=== PATIENT | male | born 1995 | race Caucasian/White ===

== ENCOUNTER 2023-11-06 16:57 | Inpatient (IN) | payer OTHER, SELFPAY ==
--- NOTE | 2023-11-06 18:03 | PC.ADMIT ---
Dejon Rubalcava is a 28-year-old male admitted from [facility] to on a CV for treatment of SI w/ plan to jump off bridge. Tox screen not performed. Pt denies ETOH use but reports daily cigarette use and occasional THC use. Pt has hx of autism, mood disorder, anxiety, depression, bipolar and schizophrenia. Pt presented to ED with increased feelings of depression after finding out his aunt is dying of cancer and his friend last year. Pt does not have any outside providers. Upon arrival to , pt was alert, oriented, pleasant and cooperative. Mood depressed with congruent affect. Pt denied sleep and appetite disturbances. Pt was cooperative with admission but appeared guarded at times and would answer assessment questions by saying not necessarily and would not elaborate. Pt currently denies SI/HI/AH/VH but will reach out to staff if thoughts occur. Pt placed on 15 minute safety checks.
--- NOTE | 2023-11-06 18:17 | P.CONHOSP_ITS ---
History of Present Illness Data of Consult Service Date: 11/06/23 Requesting physician: Sharron Estrada Primary Care Provider: MD MARIA LUISA Powers Reason for consult: medical H&P 28-year-old male with history of autism (patient denies), mood disorder admitted to adult Psychiatry from [facility] ED with consult placed hospitalist service for medical H&P. While at [facility] ED, labs were unremarkable. The patient reports some abrasions to the dorsum of the left foot from his sandals that is causing some mild discomfort but otherwise has no complaints. He denies any alcohol use, drug use but does endorse smoking 1/2 pack of cigarettes on a daily basis. There does not appear to be any other acute medical issues at this time. Review of Systems Review of Systems: General: No fevers, malaise, unintentional weight loss HEENT: No blurred vision, diplopia. No sore throat, nasal congestion, rhinorrhea, sinus pain, ear pain Cardiovascular: No chest pain, palpitations, or leg edema Respiratory: No shortness of breath, wheezing, cough GI: No abdominal pain, nausea, vomiting, diarrhea, constipation, melena, hematochezia : No dysuria, hematuria, increased urinary frequency, decreased urinary output MSK: No myalgia, back pain Neuro: No headaches, weakness, paresthesias Skin: No rashes. +abrasions L foot PMFSH Medical History (Updated 11/06/23 @ 18:22 by SANTIAGO Gunderson) Autism spectrum disorder Social History Advance Directives: No Advance Directives Information Provided: No Meds Allergies Allergy/AdvReac Type Severity Reaction Status Date / Time Unable to Assess Allergy Verified 11/06/23 17:13 Active Medications: Current Medications Acetaminophen (Acetaminophen 325 Mg Tablet) 650 mg PO Q6H PRN PRN Reason: Headache/Pain Mild Scale (1-3) Al Hydroxide/Mg Hydroxide (Magnesium Hydrox/Alum Hydrox 30 Ml Oral.Susp) 30 ml PO Q6H PRN PRN Reason: Heartburn/Nausea Hydroxyzine HCl (Hydroxyzine Hcl 25 Mg Tablet) 25 mg PO Q6H PRN PRN Reason: Anxiety Magnesium Hydroxide (Milk Of Magnesia 30 Ml Oral.Susp) 30 ml PO DAILY PRN PRN Reason: Constipation Nicotine (Nicotine 21 Mg Patch.Td24) 21 mg TRANSDERMA DAILY PRN PRN Reason: nicotine cravings Nicotine Polacrilex (Nicotine Polacrilex 2 Mg Gum) 4 mg BUCCAL Q2H PRN PRN Reason: Nicotine Cravings Trazodone HCl (Trazodone Hcl 50 Mg Tablet) 50 mg PO BEDTIME MRX1 PRN PRN Reason: Insomnia Physical Exam Vital Signs and Narrative: Constitutional - Awake and Alert, No apparent distress Eyes - PERRLA, EOMI Cardiovascular - S1S2, RRR, No edema Respiratory - Normal lung expansion, Normal respiratory effort, No respiratory d istress, CTA bilaterally Gastrointestinal - NT / ND; +BS; No rebound or guarding - No CVA tenderness Extremities - no calf tenderness bilaterally, no swelling Skin - Warm/Dry. Tro superficial abrasions to the dorsum of the L foot with minimal surrounding erythema, no warmth or drainage Neurological - Alert & oriented x3, CN II-XII in tact, 5/5 strength BUE and BLE Psychological - Appropriate affect Assessment and Plan (1) Routine medical exam: Status: Acute Plan 28-year-old male with history of autism (patient denies), mood disorder admitted to adult Psychiatry from [facility] ED with consult placed hospitalist service for medical H&P. #Mood disorder -plan per psychiatry # Abrasions L foot -no evidence of infection -can use bactroban and cover with bandage. Advised to wear socks or appropriate footwear while on the unit Thank you for allowing me to participate in this consult. Signing off at this time. Please do not hesitate to call for further questions or for any acute medical issues
[2023-11-06 18:41] VITALS: BP 114/60; PULSE 73; RESP 16; TEMP 37.1; O2SAT 98; BMI 20.8
--- NOTE | 2023-11-06 19:20 | PC.NURSE ---
Pt's mother called asking for information. Pt did not sign release of information and stated his mother is a trigger for him and he does not want to receive any calls from her.
[2023-11-06 20:00] VITALS: BP 124/73; PULSE 75; RESP 16; TEMP 36.6; O2SAT 98
[2023-11-06] MEDS: Flu Vacc TS2024-25(6mos up)/PF 0.5 ML SYRINGE IM (20:04)
[2023-11-06] MEDS: Mupirocin 2 % Oint 22 GM TUBE 1 APPL TOPICAL (22:35)
[2023-11-06] MEDS: busPIRone HCl 10 MG TABLET PO (22:40)
[2023-11-07 07:25] VITALS: BP 115/57; PULSE 62; RESP 14; TEMP 36.5; O2SAT 95
[2023-11-07 07:50] VITALS: BP 115/57; PULSE 62; RESP 14; TEMP 36.5; O2SAT 95
[2023-11-07] MEDS: busPIRone HCl 10 MG TABLET PO ×2 (08:19→22:56)
[2023-11-07] MEDS: Escitalopram Oxalate 10 MG TABLET PO (08:19)
[2023-11-07] MEDS: Mupirocin 2 % Oint 22 GM TUBE 1 APPL TOPICAL ×2 (08:20→22:55)
[2023-11-07] MEDS: Nicotine Polacrilex 2 MG GUM 4 MG BUCCAL ×4 (08:27→22:19)
[2023-11-07] MEDS: Nicotine 14 MG PATCH.TD24 TRANSDERMA (08:27)
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
[2023-11-07 20:00] VITALS: BP 124/68; PULSE 84; RESP 16; TEMP 36.6; O2SAT 97
[2023-11-07] MEDS: hydrOXYzine HCL 25 MG TABLET PO (22:56)
[2023-11-07] MEDS: traZODone HCL 100 MG TABLET PO (23:40)
[2023-11-08 07:00] VITALS: BMI 20.7
[2023-11-08 08:00] VITALS: RESP 17
[2023-11-08] MEDS: Escitalopram Oxalate 10 MG TABLET PO (09:04)
[2023-11-08] MEDS: busPIRone HCl 10 MG TABLET PO ×2 (09:04→22:25)
[2023-11-08] MEDS: Mupirocin 2 % Oint 22 GM TUBE 1 APPL TOPICAL ×2 (09:05→22:24)
[2023-11-08] MEDS: Nicotine 14 MG PATCH.TD24 TRANSDERMA (09:08)
[2023-11-08 09:33] LABS: Cholesterol 201 mg/dL (<200); HDL Cholesterol 74 mg/dL (>40); LDL Cholesterol Calculated 118 mg/dL (<100); Magnesium 2.2 mg/dL (1.6-2.6); Triglycerides 47 mg/dL (<150)
[2023-11-08 09:49] LABS: Free T4 (Free Thyroxine) 0.87 ng/dL (0.71-1.85); Thyroid Stimulating Hormone 1.87 uIU/mL (0.32-4.0)
[2023-11-08 10:01] LABS: Folate 9.6 ng/mL (> or = 4.0); Vitamin B12 644 pg/mL (200-900)
[2023-11-08 10:11] LABS: Estimated Average Glucose 103 mg/dL; Hemoglobin A1c % 5.2 % (<6.0)
[2023-11-08] MEDS: Nicotine Polacrilex 2 MG GUM 4 MG BUCCAL ×3 (14:15→21:04)
--- NOTE | 2023-11-08 14:55 | P.PNPSI_ITS ---
Subjective Subjective Date of Service: 11/08/23 Reason For Visit: Unspecified Bipolar Disorder Interim History: sleeping in bed. woke up but declined interview. per staff, agitated yesterday. taking meds. no SI/HI/AVH. some self-dialogue. appears to be RIS. slept 8 hours. Mental Status Exam Mental Status Exam Narrative: dressed in hospital gown. disheveled. not cooperative. no PMA/PMR. speech nml rate; decr amount, loudness, tone; incr latency. thoughts linear and logical. affect constricted, normo-intense, non-labile. mood not assessed. no SI/SIBI/HI/AVH expressed. Diagnostics Vital Signs (24Hr): Vital Signs - 24 hr 11/07/23 20:00 11/08/23 08:00 Temperature 97.8 F Pulse Rate 84 Respiratory Rate 16 17 Blood Pressure 124/68 Pulse Oximetry 97 Oxygen Delivery Method Room Air BMI result Body Mass Index 20.8 Labs Labs: Laboratory Results - last 48 hr 11/08/23 08:55 Estimat Average Glucose 103 Hemoglobin A1c % 5.2 Magnesium 2.2 Triglycerides 47 Cholesterol 201 H LDL Cholesterol, Calc 118 H HDL Cholesterol 74 Vitamin B12 644 Folate 9.6 TSH 1.87 Free T4 0.87 Medications Medications Current Medications Acetaminophen (Acetaminophen 325 Mg Tablet) 650 mg PO Q6H PRN PRN Reason: Headache/Pain Mild Scale (1-3) Al Hydroxide/Mg Hydroxide (Magnesium Hydrox/Alum Hydrox 30 Ml Oral.Susp) 30 ml PO Q6H PRN PRN Reason: Heartburn/Nausea Buspirone HCl (Buspirone Hcl 10 Mg Tablet) 10 mg PO BID [facility] Last Admin: 11/08/23 09:04 Dose: 10 mg Escitalopram Oxalate (Escitalopram Oxalate 10 Mg Tablet) 10 mg PO DAILY [facility] Last Admin: 11/08/23 09:04 Dose: 10 mg Hydroxyzine HCl (Hydroxyzine Hcl 25 Mg Tablet) 25 mg PO Q6H PRN PRN Reason: Anxiety Last Admin: 11/07/23 22:56 Dose: 25 mg Magnesium Hydroxide (Milk Of Magnesia 30 Ml Oral.Susp) 30 ml PO DAILY PRN PRN Reason: Constipation Mupirocin (Mupirocin 2 % Oint 22 Gm Tube) 1 appl TOPICAL BID [facility]; Protocol Last Admin: 11/08/23 09:05 Dose: 1 appl Nicotine (Nicotine 14 Mg Patch.Td24) 14 mg TRANSDERMA DAILY PRN PRN Reason: nicotine cravings Last Admin: 11/08/23 09:08 Dose: 14 mg Nicotine Polacrilex (Nicotine Polacrilex 2 Mg Gum) 4 mg BUCCAL Q2H PRN PRN Reason: Nicotine Cravings Last Admin: 11/08/23 14:15 Dose: 4 mg Trazodone HCl (Trazodone Hcl 100 Mg Tablet) 100 mg PO BEDTIME PRN PRN Reason: insomnia Last Admin: 11/07/23 23:40 Dose: 100 mg Allergies Allergies Allergy/AdvReac Type Severity Reaction Status Date / Time No Known Allergies Allergy Verified 11/06/23 18:40 Assessment & Plan Assessment & Plan (1) Depressive disorder: Status: Acute Code(s): F32.A - Depression, unspecified (2) Autism spectrum disorder: Status: Acute Code(s): F84.0 - Autistic disorder Plan 11/06: continue lexapro and buspar. refer for outpt Tx. pt requesting a letter for court indicating he has had a psychiatric evaluation. 11/07: declined interview. per staff, appearing to RIS, some self-dialoguing. continue current mgmt. Reason for continued inpatient stay Substantial Risk for: harm to self Time Spent With Patient Time: Total time managing care of this patient today ____ minutes.
[2023-11-08 20:00] VITALS: BP 144/86; PULSE 80; RESP 16; TEMP 36.6; O2SAT 98
[2023-11-09] MEDS: Escitalopram Oxalate 10 MG TABLET PO (09:23)
[2023-11-09] MEDS: busPIRone HCl 10 MG TABLET PO ×2 (09:23→22:46)
[2023-11-09] MEDS: Nicotine 14 MG PATCH.TD24 TRANSDERMA (09:25)
[2023-11-09] MEDS: Nicotine Polacrilex 2 MG GUM 4 MG BUCCAL ×5 (09:47→22:47)
[2023-11-09] MEDS: Mupirocin 2 % Oint 22 GM TUBE 1 APPL TOPICAL ×2 (09:48→22:46)
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
[2023-11-09 20:00] VITALS: RESP 16
[2023-11-10] MEDS: Nicotine Polacrilex 2 MG GUM 4 MG BUCCAL ×4 (01:31→21:58)
[2023-11-10 08:00] VITALS: BP 109/59; PULSE 72; RESP 16; TEMP 36.8; O2SAT 98
[2023-11-10] MEDS: Escitalopram Oxalate 10 MG TABLET PO (08:55)
[2023-11-10] MEDS: Mupirocin 2 % Oint 22 GM TUBE 1 APPL TOPICAL ×2 (08:55→23:15)
[2023-11-10] MEDS: busPIRone HCl 10 MG TABLET PO ×2 (08:55→23:15)
--- NOTE | 2023-11-10 09:16 | P.PNPSI_ITS ---
Subjective Subjective Date of Service: 11/10/23 Reason For Visit: Unspecified Bipolar Disorder Subjective Notes: Conditional Voluntary Interim History: Patient was seen and discussed in rounds today. Records and plans were reviewed. Some depression persisting but no anxiety. Pacing. Social and somewhat guarded. He is med compliant. No complaints or side effects. Doing okay with the decrease of trazodone. No changes were made today Review of Systems Review of Systems Yes all other systems are reviewed and are negative Mental Status Exam Mental Status Exam Narrative: In today's visit he is alert, pleasant and interactive. No signs of psychosis. Moderate dysphoria present. No cognitive deficits. No delusions. Cognitively is grossly intact with slow thought processes. No SI. Judgment is intact Diagnostics Vital Signs (24Hr): Vital Signs - 24 hr 11/09/23 20:00 Respiratory Rate 16 BMI result Body Mass Index 20.7 Labs Labs: Laboratory Results - last 48 hr 11/08/23 08:55 Estimat Average Glucose 103 Hemoglobin A1c % 5.2 Magnesium 2.2 Triglycerides 47 Cholesterol 201 H LDL Cholesterol, Calc 118 H HDL Cholesterol 74 Vitamin B12 644 Folate 9.6 TSH 1.87 Free T4 0.87 Medications Medications Current Medications Acetaminophen (Acetaminophen 325 Mg Tablet) 650 mg PO Q6H PRN PRN Reason: Headache/Pain Mild Scale (1-3) Al Hydroxide/Mg Hydroxide (Magnesium Hydrox/Alum Hydrox 30 Ml Oral.Susp) 30 ml PO Q6H PRN PRN Reason: Heartburn/Nausea Buspirone HCl (Buspirone Hcl 10 Mg Tablet) 10 mg PO BID [facility] Last Admin: 11/10/23 08:55 Dose: 10 mg Escitalopram Oxalate (Escitalopram Oxalate 10 Mg Tablet) 10 mg PO DAILY [facility] Last Admin: 11/10/23 08:55 Dose: 10 mg Hydroxyzine HCl (Hydroxyzine Hcl 25 Mg Tablet) 25 mg PO Q6H PRN PRN Reason: Anxiety Last Admin: 11/07/23 22:56 Dose: 25 mg Magnesium Hydroxide (Milk Of Magnesia 30 Ml Oral.Susp) 30 ml PO DAILY PRN PRN Reason: Constipation Mupirocin (Mupirocin 2 % Oint 22 Gm Tube) 1 appl TOPICAL BID [facility]; Protocol Last Admin: 11/10/23 08:55 Dose: 1 appl Nicotine (Nicotine 14 Mg Patch.Td24) 14 mg TRANSDERMA DAILY PRN PRN Reason: nicotine cravings Last Admin: 11/09/23 09:25 Dose: 14 mg Nicotine Polacrilex (Nicotine Polacrilex 2 Mg Gum) 4 mg BUCCAL Q2H PRN PRN Reason: Nicotine Cravings Last Admin: 11/10/23 01:31 Dose: 4 mg Trazodone HCl (Trazodone Hcl 25 Mg Halftab) 75 mg PO BEDTIME PRN PRN Reason: insomnia Allergies Allergies Allergy/AdvReac Type Severity Reaction Status Date / Time No Known Allergies Allergy Verified 11/06/23 18:40 Assessment & Plan Assessment & Plan (1) Depressive disorder: Status: Acute Code(s): F32.A - Depression, unspecified (2) Autism spectrum disorder: Status: Acute Code(s): F84.0 - Autistic disorder Plan 11/06: continue lexapro and buspar. refer for outpt Tx. pt requesting a letter for court indicating he has had a psychiatric evaluation. 11/07: declined interview. per staff, appearing to RIS, some self-dialoguing. continue current mgmt. 11/08: does not appear psychotic, denies psychotic Sx. feeling improved. decrease HS traz to 75, otherwise continue current mgmt. 11/09: Continue current regimen and plans Reason for continued inpatient stay Substantial Risk for: med/psych decompensation Time Spent With Patient Time: Total time managing care of this patient today ____ minutes.
[2023-11-10 20:00] VITALS: BP 123/83; PULSE 81; RESP 16; TEMP 36.9; O2SAT 97
[2023-11-11] MEDS: Nicotine Polacrilex 2 MG GUM 4 MG BUCCAL ×8 (00:02→23:50)
[2023-11-11 07:58] VITALS: BP 118/59; PULSE 71; RESP 16; TEMP 36.3; O2SAT 97
[2023-11-11] MEDS: Escitalopram Oxalate 10 MG TABLET PO (08:55)
[2023-11-11] MEDS: busPIRone HCl 10 MG TABLET PO ×2 (08:56→21:47)
[2023-11-11] MEDS: Mupirocin 2 % Oint 22 GM TUBE 1 APPL TOPICAL (09:25)
--- NOTE | 2023-11-11 09:47 | P.PNPSI_ITS ---
Subjective Subjective Date of Service: 11/11/23 Reason For Visit: Unspecified Bipolar Disorder Subjective Notes: Conditional Voluntary Interim History: Patient was seen and discussed in rounds today. Records and plans were reviewed. He continues to be isolative, guarded and withdrawn. Moderate depression and anxiety present. Slept 5 hours. Eating adequately. No complaints or side effects. No behavioral issues. No changes were made today Review of Systems Review of Systems Yes all other systems are reviewed and are negative Mental Status Exam Mental Status Exam Narrative: In today's visit he is alert, pleasant and interactive. No signs of psychosis. Moderate dysphoria present. No cognitive deficits. No delusions. Cognitively is grossly intact with slow thought processes. No SI. Judgment is intact Diagnostics Vital Signs (24Hr): Vital Signs - 24 hr 11/10/23 20:00 11/11/23 07:58 Temperature 98.4 F 97.3 F Pulse Rate 81 71 Respiratory Rate 16 16 Blood Pressure 123/83 118/59 L Pulse Oximetry 97 97 Oxygen Delivery Method Room Air Room Air BMI result Body Mass Index 20.7 Medications Medications Current Medications Acetaminophen (Acetaminophen 325 Mg Tablet) 650 mg PO Q6H PRN PRN Reason: Headache/Pain Mild Scale (1-3) Al Hydroxide/Mg Hydroxide (Magnesium Hydrox/Alum Hydrox 30 Ml Oral.Susp) 30 ml PO Q6H PRN PRN Reason: Heartburn/Nausea Buspirone HCl (Buspirone Hcl 10 Mg Tablet) 10 mg PO BID [facility] Last Admin: 11/11/23 08:56 Dose: 10 mg Escitalopram Oxalate (Escitalopram Oxalate 10 Mg Tablet) 10 mg PO DAILY [facility] Last Admin: 11/11/23 08:55 Dose: 10 mg Hydroxyzine HCl (Hydroxyzine Hcl 25 Mg Tablet) 25 mg PO Q6H PRN PRN Reason: Anxiety Last Admin: 11/07/23 22:56 Dose: 25 mg Magnesium Hydroxide (Milk Of Magnesia 30 Ml Oral.Susp) 30 ml PO DAILY PRN PRN Reason: Constipation Mupirocin (Mupirocin 2 % Oint 22 Gm Tube) 1 appl TOPICAL BID [facility]; Protocol Last Admin: 11/11/23 09:25 Dose: 1 appl Nicotine (Nicotine 14 Mg Patch.Td24) 14 mg TRANSDERMA DAILY PRN PRN Reason: nicotine cravings Last Admin: 11/09/23 09:25 Dose: 14 mg Nicotine Polacrilex (Nicotine Polacrilex 2 Mg Gum) 4 mg BUCCAL Q2H PRN PRN Reason: Nicotine Cravings Last Admin: 11/11/23 02:21 Dose: 4 mg Trazodone HCl (Trazodone Hcl 25 Mg Halftab) 75 mg PO BEDTIME PRN PRN Reason: insomnia Allergies Allergies Allergy/AdvReac Type Severity Reaction Status Date / Time No Known Allergies Allergy Verified 11/06/23 18:40 Assessment & Plan Assessment & Plan (1) Depressive disorder: Status: Acute Code(s): F32.A - Depression, unspecified (2) Autism spectrum disorder: Status: Acute Code(s): F84.0 - Autistic disorder Plan 11/06: continue lexapro and buspar. refer for outpt Tx. pt requesting a letter for court indicating he has had a psychiatric evaluation. 11/07: declined interview. per staff, appearing to RIS, some self-dialoguing. continue current mgmt. 11/08: does not appear psychotic, denies psychotic Sx. feeling improved. decrease HS traz to 75, otherwise continue current mgmt. 11/09: Continue current regimen and plans 11/10: Continue current regimen and plans Reason for continued inpatient stay Substantial Risk for: med/psych decompensation Time Spent With Patient Time: Total time managing care of this patient today ____ minutes.
[2023-11-11 19:52] VITALS: BP 125/70; PULSE 79; RESP 14; TEMP 37; O2SAT 98
[2023-11-12] MEDS: Nicotine Polacrilex 2 MG GUM 4 MG BUCCAL ×2 (01:58→11:36)
[2023-11-12] MEDS: busPIRone HCl 10 MG TABLET PO ×2 (08:19→22:28)
[2023-11-12] MEDS: Escitalopram Oxalate 10 MG TABLET PO (08:19)
[2023-11-12 08:21] VITALS: BP 111/63; PULSE 77; RESP 16; TEMP 36.6; O2SAT 98
[2023-11-12] MEDS: Nicotine Polacrilex 2 MG GUM BUCCAL ×5 (13:31→22:28)
--- NOTE | 2023-11-12 13:55 | HO.PSYCHPN ---
Subjective Subjective Date of Service: 11/12/23 Reason For Visit: Unspecified Bipolar Disorder Interim History: calm, cooperative. no complaints. requests to reduce marina patch mg as well as marina gum to 2 mg each dose. planning to leave on . per staff, visible, pacing. using headphones. up until 0330. slept after. Mental Status Exam Mental Status Exam Narrative: dressed in hospital gown. disheveled. cooperative. no PMA/PMR. speech nml rate, amount, loudness, tone, latency. thoughts linear and logical. affect full range, normo-intense, non-labile. mood pretty good. no SI/SIBI/HI/AVH expressed. Diagnostics Vital Signs (24Hr): Vital Signs - 24 hr 11/11/23 19:52 11/12/23 08:21 Temperature 98.6 F 97.8 F Pulse Rate 79 77 Respiratory Rate 14 16 Blood Pressure 125/70 111/63 Pulse Oximetry 98 98 Oxygen Delivery Method Room Air Room Air BMI result Body Mass Index 20.7 Medications Medications Current Medications Acetaminophen (Acetaminophen 325 Mg Tablet) 650 mg PO Q6H PRN PRN Reason: Headache/Pain Mild Scale (1-3) Al Hydroxide/Mg Hydroxide (Magnesium Hydrox/Alum Hydrox 30 Ml Oral.Susp) 30 ml PO Q6H PRN PRN Reason: Heartburn/Nausea Buspirone HCl (Buspirone Hcl 10 Mg Tablet) 10 mg PO BID [facility] Last Admin: 11/12/23 08:19 Dose: 10 mg Escitalopram Oxalate (Escitalopram Oxalate 10 Mg Tablet) 10 mg PO DAILY [facility] Last Admin: 11/12/23 08:19 Dose: 10 mg Hydroxyzine HCl (Hydroxyzine Hcl 25 Mg Tablet) 25 mg PO Q6H PRN PRN Reason: Anxiety Last Admin: 11/07/23 22:56 Dose: 25 mg Magnesium Hydroxide (Milk Of Magnesia 30 Ml Oral.Susp) 30 ml PO DAILY PRN PRN Reason: Constipation Mupirocin (Mupirocin 2 % Oint 22 Gm Tube) 1 appl TOPICAL BID [facility]; Protocol Last Admin: 11/12/23 08:20 Dose: Not Given Nicotine (Nicotine 7 Mg Patch.Td24) 7 mg TRANSDERMA DAILY PRN PRN Reason: nicotine cravings Nicotine Polacrilex (Nicotine Polacrilex 2 Mg Gum) 2 mg BUCCAL Q2H PRN PRN Reason: Nicotine Cravings Last Admin: 11/12/23 13:31 Dose: 2 mg Trazodone HCl (Trazodone Hcl 25 Mg Halftab) 75 mg PO BEDTIME PRN PRN Reason: insomnia Allergies Allergies Allergy/AdvReac Type Severity Reaction Status Date / Time No Known Allergies Allergy Verified 11/06/23 18:40 Assessment & Plan Assessment & Plan (1) Depressive disorder: Status: Acute Code(s): F32.A - Depression, unspecified (2) Autism spectrum disorder: Status: Acute Code(s): F84.0 - Autistic disorder Plan 11/06: continue lexapro and buspar. refer for outpt Tx. pt requesting a letter for court indicating he has had a psychiatric evaluation. 11/07: declined interview. per staff, appearing to RIS, some self-dialoguing. continue current mgmt. 11/08: does not appear psychotic, denies psychotic Sx. feeling improved. decrease HS traz to 75, otherwise continue current mgmt. 11/09: Continue current regimen and plans 11/10: Continue current regimen and plans 11/11: stable, well. planning for weds discharge. decr marina patch to 7 mg/day. decr marina gum to 2 mg/dose. Reason for continued inpatient stay Substantial Risk for: rapid decompensation Time Spent With Patient Time: Total time managing care of this patient today __25__ minutes.
[2023-11-12] MEDS: Nicotine 7 MG PATCH.TD24 TRANSDERMA (14:53)
[2023-11-12 19:51] VITALS: BP 126/74; PULSE 85; RESP 18; TEMP 36.9; O2SAT 98
[2023-11-13] MEDS: Nicotine Polacrilex 2 MG GUM BUCCAL ×8 (00:30→23:17)
[2023-11-13] MEDS: Escitalopram Oxalate 10 MG TABLET PO (09:16)
[2023-11-13] MEDS: busPIRone HCl 10 MG TABLET PO ×2 (09:16→22:10)
[2023-11-13] MEDS: Nicotine 7 MG PATCH.TD24 TRANSDERMA (10:03)
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
[2023-11-13 22:15] VITALS: BP 117/66; PULSE 83; RESP 14; TEMP 36.6; O2SAT 97
[2023-11-14] MEDS: Nicotine Polacrilex 2 MG GUM BUCCAL ×2 (01:20→09:58)
[2023-11-14] MEDS: busPIRone HCl 10 MG TABLET PO (09:26)
[2023-11-14] MEDS: Escitalopram Oxalate 10 MG TABLET PO (09:26)
[2023-11-14] MEDS: Nicotine 7 MG PATCH.TD24 TRANSDERMA (09:26)
== END 2023-11-14 10:27 | disposition home or self-care (01) | DRG 754 ==
PROVIDERS: Clinical Nurse Specialist Psychiatric/Mental Health, Adult; Admitting Provider Psychiatry & Neurology Psychiatry; PCP Internal Medicine; Visit Provider Psychiatry & Neurology Psychiatry
DX: F32.A Depression, unspecified (principal); F17.210 Nicotine dependence, cigarettes, uncomplicated; F84.0 Autistic disorder; Z71.6 Tobacco abuse counseling; Z23 Encounter for immunization
CPT/HCPCS: 36415; 80061; 82607; 82746; 83036; 83735; 84439; 84443; 90656

== ENCOUNTER → 2023-11-06 16:57 | Outpatient (BNV) | payer OTHER, SELFPAY | PROVIDERS: Admitting Provider Psychiatry & Neurology Psychiatry; PCP Internal Medicine; Visit Provider Physician Assistant | DX: Z02.2 Encounter for examination for admission to residential institution (principal) | CPT/HCPCS: 99429 ==

== ENCOUNTER → 2023-11-06 16:57 | Outpatient (BNV) | payer OTHER, SELFPAY | PROVIDERS: Admitting Provider Psychiatry & Neurology Psychiatry; PCP Internal Medicine; Visit Provider Psychiatry & Neurology Psychiatry | DX: F32.2 Major depressive disorder, single episode, severe without psychotic features (principal); F84.0 Autistic disorder | CPT/HCPCS: 99231; 99232; 99233 ==

== ENCOUNTER 2024-01-22 03:45 | Emergency (ER) | payer OTHER, SELFPAY ==
[2024-01-22 03:57] VITALS: BP 122/78; PULSE 106; RESP 16; TEMP 36.8; O2SAT 97; BMI 20.4
[2024-01-22 04:18] LABS: IDNOW Serial# 6674DD1D; Strep A Nucleic Acid Positive (Negative)
[2024-01-22 04:51] LABS: Influenza A PCR NEGATIVE (Negative); Influenza B PCR NEGATIVE (Negative); Resp Syncy Virus RNA Qual PCR NEGATIVE (Negative); SARS COV2 PCR INHOUSE NEGATIVE (Negative)
--- NOTE | 2024-01-22 07:19 | ED_ITS ---
HPI - General Adult General Chief complaint: Upper Respiratory Symptoms Stated complaint: runny nose, sore throat Time Seen by Provider: 01/22/24 07:09 Source: patient, RN notes reviewed and old records reviewed Mode of arrival: ambulatory Limitations: no limitations History of Present Illness ED Provider: ÁNGELA MARSH PA-C HPI narrative: 28 year old male with pmhx significant for autism presents to the ED today for evaluation of covid symptoms . He reports runny nose, sore throat, dry cough, fever (TMAX 101), and chills x2 days. He has not been taking any aint-mrd-sranskl medications for his symptoms at home. States the last time he felt like this he was diagnosed with covid. Denies known sick contacts. Denies recent travel. Denies headache, dizziness, vision changes, chest pain, shortness of breath, rashes. Related Data Previous Rx's ?Medication ?Instructions ?Recorded buspirone 10 mg tablet 10 mg PO BID 30 days #60 tabs 11/13/23 escitalopram oxalate 10 mg tablet 10 mg PO DAILY 30 days #30 tabs 11/13/23 (Lexapro) nicotine (polacrilex) 2 mg gum 2 mg buccal Q2H PRN Nicotine 11/13/23 Cravings 15 days #120 ea nicotine 7 mg/24 hr daily 7 mg transdermal DAILY PRN 11/13/23 transdermal patch nicotine cravings 28 days #28 ea trazodone 50 mg tablet 75 mg (1.5 x 50 mg) PO BEDTIME PRN 11/13/23 insomnia 30 days #45 tabs benzocaine 15 mg-menthol 2.6 mg 1 reno mucous membrane Q2-4H PRN 01/22/24 lozenges (Cepacol Sore Throat sore throat #16 ea (benzocaine-menthol)) penicillin V potassium 500 mg 500 mg PO BID 10 days #20 tabs 01/22/24 tablet Allergies Allergy/AdvReac Type Severity Reaction Status Date / Time No Known Allergies Allergy Verified 01/22/24 03:57 Review of Systems Review of Systems: Constitutional: No fever, chills, fatigue, night sweats, weight changes ENT/Mouth: No ear pain, hearing loss, nasal congestion, sinus pain, rhinorrhea, +sore throat, +odynophagia, No dysphagia Eyes: No eye pain, swelling, redness, vision changes, discharge Cardio: No chest pain, palpitations, MEEHAN, orthopnea, peripheral edema Pulm: No SOB, sputum, wheezing, dyspnea, hemoptysis, +cough GI: No nausea, vomiting, hematemesis, abdominal pain, diarrhea, constipation, hematochezia, melena : No irregular bleeding, dysuria, frequency, urgency, hesitancy, hematuria, flank pain MSK: No back pain, neck pain, joint pain, myalgias Skin: No lesions, rashes Neuro: No weakness, numbness, paresthesias, LOC, dizziness, headache All other systems reviewed and are negative. [facility] Past Medical History Attestation statement: The following information was validated with the patient. Source: old records reviewed and nursing notes reviewed Medical History Routine medical exam Autism spectrum disorder Social History Social History Household Members: Friend(s) Housing: Apartment Patient Tobacco Use Status: Current everyday Tobacco user Tobacco use type: Cigarette Cigarette Packs Per Day: 0.5 Cigarettes Per Day: 10.0 e-Cigarette/Vaping Use: Currently Using Second Hand Smoke Exposure: No Substance Use Type: Marijuana Advance Directives: No Advance Directives Information Provided: No Do you have a plan to hurt others: No Plan service: No Sexual orientation: Unable to collect Physical Exam ED Vital Signs: Vital Signs - 24 hr 01/22/24 03:57 Temperature 98.2 F Pulse Rate 106 H Respiratory Rate 16 Blood Pressure 122/78 Pulse Oximetry 97 Oxygen Delivery Method Room Air BMI result Body Mass Index 20.4 Tachycardic to 106. Vitals otherwise WNL. Afebrile. General: Well appearing, in no acute distress. Skin: Warm, dry, intact. No rashes or lesions. Head: Normocephalic, atraumatic. EENT: Hearing is intact b/l. Conjunctiva clear. PERRLA. EOM intact. Moist mucous membranes.?posterior oropharynx is erythematous. There is no tonsillar edema or tonsillar exudates. No peritonsillar masses. Uvula midline. Controlling secretions and speaking in complete sentences. Cardiac: Chest wall symmetric. RRR Lungs: Normal respiratory effort without accessory muscle use. CTA bilaterally. No rales, rhonchi, or wheezes.? Abdomen: Soft, non-tender, non-distended. No rebound tenderness or guarding. Positive BS x4. no splenomegaly. Ext: Upper and lower extremities atraumatic, without tenderness, deformity, swelling or erythema. Full ROM throughout Neuro: AOx3. Normal speech. Ambulating with steady gait. Psych: Appropriate mood and affect. Responds appropriately to questions. Course Course Course Narrative: 07 -- patient tested positive for strep throat. negative for covid, flu, rsv. he is afebrile in ED. will send penicillin and cepacol lozenges to pharmacy. Patient has remained stable throughout ED visit today. Discussed worrisome signs and symptoms and when to return to the ED. All questions answered at this time. Patient is agreeable with disposition and stable for discharge. Medical Decision Making Medical Decision Making [facility] Narrative: 28 year old male with pmhx significant for autism presents to the ED today with upper respiratory symptoms. He is tachycardic to 106, vitals otherwise wnl. Afebrile. He is nontoxic appearing and in NAD. On exam posterior oropharynx is erythematous. There is no tonsillar edema or tonsillar exudates. No peritonsillar masses. Uvula midline. Controlling secretions and speaking in complete sentences. Lungs clear, no respiratory distress. Skin w/d/i, no ra shes. Differential diagnosis includes strep throat, viral syndrome. 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 Plan for viral serology, strep swab, re-evaluation. Differential Diagnosis Differential Diagnoses: The differential diagnosis associated with the presentation includes as above. Admission/Observation Not indicated Lab Data [facility] Lab Attestation statement: I reviewed the patient's lab results. as above Labs: Lab Results 01/22/24 Range/Units 04:05 Influenza Type A (PCR) NEGATIVE (Negative) Influenza Type B (PCR) NEGATIVE (Negative) RSV RNA Qual (PCR) NEGATIVE (Negative) SARS-CoV-2 RNA (RT-PCR) NEGATIVE (Negative) S. pyogenes GrpA ANKUSH Positive A (Negative) External Record Review External record reviewed: Inpatient record Prescription Management I considered prescription management with: Pain Medication (Cepacol throat lozenges) and Antibiotic (Penicillin) Critical Care Time Critical Care Time Critical Care Time: No Discharge Plan Discharge Clinical Impression: Acute streptococcal pharyngitis Patient Disposition: Home, Self-Care Instructions: Strep Throat (ED) Additional Instructions: You tested positive for strep throat. You tested negative for flu, covid, and rsv. Penicillin is an antibiotic that has been sent to your pharmacy. Take this twice daily for the next 10 days to treat strep throat. Do not stop taking these antibiotics early or miss any doses as this may cause infection to return or worsen. Cepacol throat lozenges have been sent to your pharmacy to help with throat pain. You may also purchase msso-xhp-lephkrp chloraseptic spray to numb your throat. Take Tylenol and ibuprofen as needed for body aches or fevers. Make sure to change your toothbrush as this contains bacteria. Strep throat is contagious. If anyone else in your household is exhibiting symptoms, please advise them to come to the ED, urgent care, or to see their primary care provider. Follow up with your primary care provider this week. Return to the Emergency Department if you experience worsening or uncontrolled pain, tongue swelling, difficulty swallowing, change in your voice, difficulty breathing, fevers 100.4?F or greater, recurrent vomiting, development of a rash, or any other concerning symptoms. In the case of emergency, call 911.? Prescriptions: New penicillin V potassium 500 mg tablet 500 mg PO BID 10 Days Qty: 20 0RF Cepacol Sore Throat (liliane-men) 15-2.6 mg lozenge 1 reno mucous membrane Q2-4H PRN (Reason: sore throat) Qty: 16 0RF No Action nicotine (polacrilex) 2 mg Gum 2 mg buccal Q2H PRN (Reason: Nicotine Cravings) 15 Days Qty: 120 1RF nicotine 7 mg/24 hr Patch 24 Hour 7 mg transdermal DAILY PRN (Reason: nicotine cravings) 28 Days Qty: 28 0RF trazodone 50 mg tablet 75 mg PO BEDTIME PRN (Reason: insomnia) 30 Days Qty: 45 0RF buspirone 10 mg Tablet 10 mg PO BID 30 Days Qty: 60 0RF escitalopram oxalate [Lexapro] 10 mg Tablet 10 mg PO DAILY 30 Days Qty: 30 0RF Referrals: Andrew Sheikh MD [Primary Care Provider] - Stand Alone Forms: Work/School Release Print Language: Wallisian
[2024-01-22 08:14] VITALS: BP 142/89; PULSE 112; RESP 18; TEMP 37; O2SAT 95
[2024-01-22 08:15] VITALS: BP 142/89; PULSE 112; RESP 18; TEMP 37; O2SAT 95
== END 2024-01-22 08:15 | disposition home or self-care (01) ==
PROVIDERS: Emergency Provider Emergency Medicine; PCP Internal Medicine
DX: J02.0 Streptococcal pharyngitis (principal); B95.0 Streptococcus, group A, as the cause of diseases classified elsewhere; R09.89 Other specified symptoms and signs involving the circulatory and respiratory systems; R05.9 Cough, unspecified; R50.9 Fever, unspecified; F17.210 Nicotine dependence, cigarettes, uncomplicated; F12.90 Cannabis use, unspecified, uncomplicated; Z03.818 Encounter for observation for suspected exposure to other biological agents ruled out; Z79.899 Other long term (current) drug therapy
CPT/HCPCS: 0241U; 87651; 99282; 99283

== ENCOUNTER 2024-03-05 02:37 | Inpatient (IN) | payer OTHER, SELFPAY ==
[2024-03-05 02:52] VITALS: BP 109/72; PULSE 80; RESP 18; TEMP 36.6; O2SAT 99
[2024-03-05 02:54] VITALS: BP 109/72; PULSE 80; RESP 18; TEMP 36.6; O2SAT 99; BMI 19.5
--- NOTE | 2024-03-05 02:54 | PC.NURSE ---
PT self presented to the ED c/c SI with plan to hang self. Has been having thoughts for the past 7 days Family member and friend pass away recently. HX of anxiety and depression. med compliant but feels like meds are not working pt changed over and belongings secured by security, belongings list completed, VSS, labs drawn and sent down to lab. PT oriented to unit resting quietly at this time. awaiting to be seen by provider. Plan of care ongoing
[2024-03-05 03:22] LABS: Basophils Absolute Auto 0.1 X10*3/uL (0.0-0.2); Basophils Percent Auto 0.6 % (0-2); Eosinophils Absolute Auto 0.2 X10*3/uL (0.0-0.4); Eosinophils Percent Auto 1.8 % (0-4); Hematocrit 38.5 % (42.0-52.0); Hemoglobin 13.2 g/dl (14.0-18.0); Imm Gran Abs Auto 0.01 X10*3/uL (0.00-0.03); Imm Gran Pct Auto 0.1 % (0.0-0.4); Lymphocytes Absolute Auto 2.6 X10*3/uL (1.2-4.9); Lymphocytes Percent Auto 28.1 % (20-40); MANUAL DIFF FLAG NO; Mean Corpuscular HGB Conc 34.3 g/dl (31.0-36.0); Mean Corpuscular Hemoglobin 30.8 pg (27.0-33.0); Mean Corpuscular Volume 89.7 fL (80.0-98.0); Mean Platelet Volume 9.2 fL (9.4-12.4); Monocytes Absolute Auto 0.6 X10*3/uL (0.1-1.2); Monocytes Percent Auto 6.2 % (2-11); Neutrophils Absolute Auto 5.8 x10*3/uL (2.0-8.3); Neutrophils Percent Auto 63.2 % (45-73); Platelet Count 210 X10*3/uL (160-400); Red Blood Count 4.29 X10*6/uL (4.60-5.80); Red Cell Distribution Width 13.4 % (11.0-16.0); White Blood Count 9.1 X10*3/uL (4.8-10.8)
--- NOTE | 2024-03-05 03:24 | ED_ITS ---
HPI - Psych General Chief Complaint: Psychiatric Symptoms Stated Complaint: crisis Time Seen by Provider: 03/05/24 03:23 Source: patient Mode of arrival: ambulatory Limitations: no limitations History of Present Illness ED Provider: Dr. Darren Michaels HPI Narrative: 29-year-old male with a history of depression anxiety, autism who presents emergency department for evaluation of suicidal ideation with a plan to hang himself. He states that recently his aunt and a good friend . He states that this triggered suicidal thoughts with a plan to hang himself. He has had these thoughts for proximally 1 week. States that he had similar thoughts over the past year and was hospitalized at [facility]. Patient states he takes Lexapro and buspirone but he does not think that these medications are helping him at this time. The patient occasionally drinks alcohol and he occasionally smokes marijuana but denies other drug use. Related Data Home Medications ?Medication ?Instructions ?Recorded ?Confirmed escitalopram oxalate 10 mg tablet 20 mg PO DAILY 03/05/24 03/05/24 (Lexapro) Previous Rx's ?Medication ?Instructions ?Recorded buspirone 10 mg tablet 10 mg PO BID 30 days #60 tabs 11/13/23 nicotine (polacrilex) 2 mg gum 2 mg buccal Q2H PRN Nicotine 11/13/23 Cravings 15 days #120 ea nicotine 7 mg/24 hr daily 7 mg transdermal DAILY PRN 11/13/23 transdermal patch nicotine cravings 28 days #28 ea trazodone 50 mg tablet 75 mg (1.5 x 50 mg) PO BEDTIME PRN 11/13/23 insomnia 30 days #45 tabs benzocaine 15 mg-menthol 2.6 mg 1 reno mucous membrane Q2-4H PRN 01/22/24 lozenges (Cepacol Sore Throat sore throat #16 ea (benzocaine-menthol)) penicillin V potassium 500 mg 500 mg PO BID 10 days #20 tabs 01/22/24 tablet Allergies Allergy/AdvReac Type Severity Reaction Status Date / Time No Known Allergies Allergy Verified 03/05/24 02:56 Review of Systems 2 Review of Systems: Yes all other systems are reviewed and are negative PMFSH Past Medical History [facility] Narrative: Social history: He does smoke cigarettes. He states he occasionally drinks alcohol. He does smoke marijuana but denies other drug use. Medical History Routine medical exam Autism spectrum disorder Social History Social History Household Members: Friend(s) Housing: Apartment Alcohol intake: current Alcohol intake frequency: holidays/special occasions only Patient Tobacco Use Status: Current everyday Tobacco user Tobacco use type: Cigarette Cigarette Packs Per Day: 0.5 Cigarettes Per Day: 10.0 Smoked in Last 30 Days: Yes e-Cigarette/Vaping Use: Currently Using Second Hand Smoke Exposure: No Use of substances other than those prescribed or required for medical reasons: Yes Substance Use Type: Marijuana Substance Use Frequency: Occasionally Advance Directives: No Do you have a plan to hurt others: No Plan service: No Sexual orientation: Unable to collect Physical Exam 2 Vital Signs: Vital Signs: Last Vital Signs Temp 97.8 F 03/05/24 02:54 Pulse 80 03/05/24 02:54 Resp 18 03/05/24 02:54 BP 109/72 03/05/24 02:54 Pulse Ox 99 03/05/24 02:54 O2 Del Method Room Air 03/05/24 02:54 BMI result Body Mass Index 19.5 Vital signs were normal Exam: General: Awake, alert in no distress Head: Normocephalic, atraumatic EENT: PERRL, Lids normal, sclera normal, conjunctiva normal, nose normal , ears normal, throat without erythema or exudates Neck: Supple, no adenopathy Lung: breath sounds symmetric, no wheezing, rales or rhonchi Chest: symmetric movement, nontender Heart: regular rate and rhythm, normal S1, S2 no murmurs or rubs Abdomen: soft, non-tender, nondistended, normal bowel sounds Back: no vertebral tenderness, no CVAT Extremities: no deformities, moves all extremities symmetrically Neuro: Awake, alert, oriented, normal speech, cranial nerves intact, moves all extremities symmetrically Psych: Pleasant, cooperative Medical Decision Making Medical Decision Making MDM Narrative: 29-year-old male with a history of depression anxiety, autism who presents emergency department for evaluation of suicidal ideation with a plan to hang himself with symptoms being present for 1 week. Of symptoms for triggered by 2 recent (his aunt and a close friend). He has been compliant with his medications but he does not think that they are working. Patient had similar suicidal ideation with plan to hang himself within the last year and was hospitalized at [facility]. Vital signs were normal. Physical examination was unremarkable. Differential diagnosis: ?Includes but is not limited to depression, anxiety, suicidal ideation, drug use disorder, intoxication, electrolyte abnormalities, anemia Course: 07:29 Start physician observation My interpretation patient's laboratory evaluation is as follows: Normocytic anemia with an H&H of 13.2 and 38.5. CMP revealed elevated chloride of 110, elevated BUN of 29 with a normal creatinine of 1.01. Ethanol was below detectable limits. Urine tox screen pending collection. Patient was medically cleared for care team evaluation.Patient will remain in the emergency department Behavioral Health Unit until disposition can be determined or until patient's symptoms improve over time. At the end of my shift, the patient's care was turned over to my colleague, Dr. Keyon Galeana. Admission/Observation Consideration of admission/observation: Escalation of care including admission/observation considered (Yes) Lab Data MDM Lab Attestation statement: I reviewed the patient's lab results. 03/05/24 03:15 03/05/24 03:15 Labs: Lab Results 03/05/24 Range/Units 03:15 WBC 9.1 (4.8-10.8) X10*3/uL RBC 4.29 L (4.60-5.80) X10*6/uL Hgb 13.2 L (14.0-18.0) g/dl Hct 38.5 L (42.0-52.0) % MCV 89.7 (80.0-98.0) fL MCH 30.8 (27.0-33.0) pg MCHC 34.3 (31.0-36.0) g/dl RDW 13.4 (11.0-16.0) % Plt Count 210 (160-400) X10*3/uL MPV 9.2 L (9.4-12.4) fL Immature Gran % (Auto) 0.1 (0.0-0.4) % Neut % (Auto) 63.2 (45-73) % Lymph % (Auto) 28.1 (20-40) % [place] % (Auto) 6.2 (2-11) % Eos % (Auto) 1.8 (0-4) % Baso % (Auto) 0.6 (0-2) % Lymph # (Auto) 2.6 (1.2-4.9) X10*3/uL [place] # (Auto) 0.6 (0.1-1.2) X10*3/uL Eos # (Auto) 0.2 (0.0-0.4) X10*3/uL Baso # (Auto) 0.1 (0.0-0.2) X10*3/uL Abs Immat Gran (auto) 0.01 (0.00-0.03) X10*3/uL Absolute Neuts (auto) 5.8 (2.0-8.3) x10*3/uL Absolute Nucleated RBC 0.000 (0.0-0.012) X10*3/uL Nucleated RBC % (auto) 0.0 (0.0-0.2) /100WBC Sodium 143 (135-145) mmol/L Potassium 4.1 (3.3-5.1) mmol/L Chloride 110 H (96-108) mmol/L Carbon Dioxide 25 (22-29) mmol/L Anion Gap 12 (12-20) BUN 21 H (9-16) mg/dL Creatinine 1.01 (0.5-1.4) mg/dL Estim Creat Clear Calc 76.8 Estimated GFR > 60 Random Glucose 94 (60-115) mg/dL Calcium 9.4 (8.4-10.2) mg/dL Total Bilirubin 0.2 (0.0-1.0) mg/dL AST 27 (5-37) U/L ALT 21 (0-40) U/L Alkaline Phosphatase 55 (39-117) U/L Total Protein 6.6 (6.5-8.0) g/dL Albumin 4.2 (3.5-5.0) g/dL Ethyl Alcohol < 10 mg/dL Chronic Conditions Patient?s care impacted by: Other (Depression, anxiety) Discharge Plan Discharge Clinical Impression: History of suicidal ideation Patient Disposition: Still a Patient Prescriptions: No Action penicillin V potassium 500 mg tablet 500 mg PO BID 10 Days Qty: 20 0RF Cepacol Sore Throat (liliane-men) 15-2.6 mg lozenge 1 reno mucous membrane Q2-4H PRN (Reason: sore throat) Qty: 16 0RF escitalopram oxalate [Lexapro] 10 mg tablet 20 mg PO DAILY nicotine (polacrilex) 2 mg Gum 2 mg buccal Q2H PRN (Reason: Nicotine Cravings) 15 Days Qty: 120 1RF nicotine 7 mg/24 hr Patch 24 Hour 7 mg transdermal DAILY PRN (Reason: nicotine cravings) 28 Days Qty: 28 0RF trazodone 50 mg tablet 75 mg PO BEDTIME PRN (Reason: insomnia) 30 Days Qty: 45 0RF buspirone 10 mg Tablet 10 mg PO BID 30 Days Qty: 60 0RF Interventions: [place]-Suicide Risk Severity Scale Last Done: 03/05/24 02:58 Print Language: Khmer
[2024-03-05 03:57] LABS: Alanine Aminotransferase 21 U/L (0-40); Albumin Level 4.2 g/dL (3.5-5.0); Alkaline Phosphatase 55 U/L (39-117); Anion Gap 12 (12-20); Aspartate Amino Transferase 27 U/L (5-37); Bilirubin Total 0.2 mg/dL (0.0-1.0); Blood Urea Nitrogen 21 mg/dL (9-16); Calcium 9.4 mg/dL (8.4-10.2); Carbon Dioxide 25 mmol/L (22-29); Chloride 110 mmol/L (96-108); Creatinine Clr Calc Pharmacy 76.8; Estimated Glomerular Filt Rate > 60; Ethanol < 10 mg/dL; Glucose Random 94 mg/dL (60-115); Potassium 4.1 mmol/L (3.3-5.1); Sodium 143 mmol/L (135-145); Total Protein 6.6 g/dL (6.5-8.0)
--- NOTE | 2024-03-05 08:57 | PC.NURSE ---
Care team at bedside
--- NOTE | 2024-03-05 09:53 | MHC.CARE ---
Pt will be an Adult inpatient psychiatric bedsearch
[2024-03-05 14:09] LABS: Appearance Urine Turbid; Color Urine Yellow; Glucose Urine UA Negative (Negative); Leukocyte Esterase Urine Negative (Negative); Nitrite Urine Negative (Negative); PH 6.5 (5.0-9.0); Specific Gravity - Urine >= 1.030 (1.005-1.025); Urine Blood Negative (Negative); Urine Ketones Negative (Negative); Urine Protein Negative (Neg-Trace)
[2024-03-05 14:17] LABS: Amphetamine Screen Urine Not Detected (Not Detect); Barbiturates, Urine Not Detected (Not Detect); Benzodiazepines Screen Urine Not Detected (Not Detect); Buprenorphine Scr Not Detected (Not Detect); Cannabinoid Screen Urine POSITIVE (Not Detect); Cocaine Screen Urine Not Detected (Not Detect); Fentanyl, urine Not Detected (Not Detect); Methadone Screen, Urine Not Detected (Not Detect); Opiate Screen Urine Not Detected (Not Detect); Oxycodone Screen Urine Not Detected (Not Detect); Phencyclidine Screen Urine Not Detected (Not Detect)
[2024-03-05 16:45] VITALS: BP 112/64; PULSE 75; RESP 18; TEMP 36.8; O2SAT 97
[2024-03-05 20:00] VITALS: BP 117/71; PULSE 77; RESP 16; TEMP 37.3; O2SAT 98
--- NOTE | 2024-03-05 20:15 | PHA.MEDREC ---
Addendum entered by [place], [facility] 03/05/24 20:30: med rec reviewed Original Note: Pharmacy Consult ? Medication Reconciliation Pharmacy reviewed med rec done by nursing. No claims were found for patient and I called patients [facility] in [place] to find out if they have filled Buspirone 10mg, Escitalopram 20mg or 10mg tabs and the Nicotine patches. They confirmed the last time the patient got the Buspirone 10mg tabs was in October for 30 days and the patient has not tried filling it since. They confirmed they also filled Escitalopram 10mg tabs in October for 30 days but states in the beginning of November the patients Dr discontinues that dose, and in January the patient had Escitalopram 20mg tabs filled 01/21 for 14 days and states on 02/[address] stopped that regimen. They confirmed the patient had Nicotine patches filled 11/13 for 28 days and also the patient got Nicotine gum filled on November 13 and states the patient has not filled those since. I spoke with the patients nurse and she states for the busprione He said still taking lexapro, 10 mg was dc and dose was increased. He said he fills buspirone in [place] and has been taking it . I kept those both on the med rec since patient confirmed that he was still taking them today.
[2024-03-05] MEDS: busPIRone HCl 10 MG TABLET PO (20:21)
--- NOTE | 2024-03-05 22:54 | PC.NURSE ---
Pt placed on 5 min checks ULB for safety due to past suicide attempts and SI w/plan to to hang self yesterday. CARE team assessment indicated pt had purchased means such as rope. Due to this pt placed on 5 min check although pt denies current SI/HI.
[2024-03-05 23:13] VITALS: BMI 22.4
[2024-03-05 23:14] VITALS: BMI 22.4
--- NOTE | 2024-03-05 23:16 | PC.NURSE ---
Pt arrived on M3 from [facility] at 19:45 on a CV for the treatment of SI w/plan to jump off bridge or hang self. Per CARE team assessment pt had purchased rope and was determined to follow through with his attempt. Precipitants of this admission include his 'favorite' aunt recently passing as well as a good friend ending his life in January 2024. Pt has 2 prior unsuccesful suicide attempts via hanging and cutting. Pt here due SI, increasing depression and feeling as if current meds are not helpful. Skin check completed with no significant findings. Pt placed on 5 min check for safety. Pt psych + structured group appropriate. Pt affect is flat and withdrawn. Pt is difficult to engage, but went to bed and fell asleep despite being told we would be doing his admission. adherent with night meds
--- NOTE | 2024-03-05 23:21 | PC.ADMIT ---
Pt arrived to [facility] [place] [facility] at 19:45 on a CV for the treatment of SI w/plan to jump off bridge or hang self. Per CARE team assessment pt had purchased rope and was determined to follow through with his attempt. Precipitants of this admission include his 'favorite' aunt recently passing as well as a good friend ending his life in January 2024. Pt has 2 prior unsuccesful suicide attempts via hanging and cutting. Pt here due SI, increasing depression and feeling as if current meds are not helpful. Pt completed safety tool and indicated that being around med is a trigger. Pt has a hx of self injurious behaviors but reported he feels safe now. Pt still placed on 5 min checks for safety and due to his hx of self-harm. Skin check completed with no significant findings. Pt psych + structured group appropriate. Pt affect is flat and withdrawn. Pt difficult to engage, went to bed and fell asleep despite being told we would be doing his admission. Pt adherent with night meds, wants to be left to sleep.
[2024-03-06 07:45] VITALS: BP 106/51; PULSE 56; RESP 12; TEMP 36.7; O2SAT 96
[2024-03-06] MEDS: Escitalopram Oxalate 20 MG TABLET PO (08:54)
[2024-03-06] MEDS: busPIRone HCl 10 MG TABLET PO ×2 (08:54→20:44)
[2024-03-06] MEDS: Nicotine 21 MG PATCH.TD24 TRANSDERMA (10:16)
[2024-03-06] MEDS: Nicotine Polacrilex 2 MG GUM BUCCAL (11:07)
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
[2024-03-06 20:00] VITALS: BP 117/66; PULSE 72; RESP 16; TEMP 37.4; O2SAT 96
[2024-03-06] MEDS: Nicotine Polacrilex 2 MG GUM 4 MG BUCCAL (20:50)
[2024-03-07] MEDS: Nicotine Polacrilex 2 MG GUM 4 MG BUCCAL ×7 (00:31→23:05)
[2024-03-07] MEDS: buPROPion HCl XL 150 MG TAB.ER.24H PO (09:08)
[2024-03-07] MEDS: Escitalopram Oxalate 10 MG TABLET PO (09:08)
[2024-03-07] MEDS: busPIRone HCl 10 MG TABLET PO ×2 (09:08→20:11)
--- NOTE | 2024-03-07 09:49 | PC.NURSE ---
Pt declined flu vaccine
--- NOTE | 2024-03-07 14:23 | HO.PSYCHPN ---
Subjective Subjective Date of Service: 03/07/24 Reason For Visit: SI Interim History: calm, cooperative, pleasant. upset about roommate's masturbating openly in the room. informed room changes underway. otherwise no issues. agreeable to increase wellbutrin to 300 mg daily as of sunday. per staff, 3-day up . depressed and anxious. isolative. took scheduled meds. Mental Status Exam Mental Status Exam Narrative: dressed in own clothes, adequately groomed. cooperative. no PMA/PMR. speech nml rate, amount, loudness, tone, latency. thoughts linear and logical. affect constricted, normo-intense, non-labile. mood fair. no SI/SIBI/HI/AVH expressed. Diagnostics Vital Signs (24Hr): Vital Signs - 24 hr 03/06/24 20:00 Temperature 99.4 F Pulse Rate 72 Respiratory Rate 16 Blood Pressure 117/66 Pulse Oximetry 96 Oxygen Delivery Method Room Air BMI result Body Mass Index 22.4 Labs 03/05/24 03:15 03/05/24 03:15 Medications Medications Current Medications Acetaminophen (Acetaminophen 325 Mg Tablet) 650 mg PO Q6H PRN PRN Reason: Headache/Pain Mild Scale (1-3) Al Hydroxide/Mg Hydroxide (Magnesium Hydrox/Alum Hydrox 30 Ml Oral.Susp) 30 ml PO Q6H PRN PRN Reason: Heartburn/Nausea Bupropion HCl (Bupropion Hcl Xl 150 Mg Tab.Er.24h) 150 mg PO DAILY [facility] Last Admin: 03/07/24 09:08 Dose: 150 mg Buspirone HCl (Buspirone Hcl 10 Mg Tablet) 10 mg PO BID [facility] Last Admin: 03/07/24 09:08 Dose: 10 mg Escitalopram Oxalate (Escitalopram Oxalate 10 Mg Tablet) 10 mg PO DAILY [facility] Last Admin: 03/07/24 09:08 Dose: 10 mg Hydroxyzine HCl (Hydroxyzine Hcl 25 Mg Tablet) 25 mg PO Q6H PRN PRN Reason: Anxiety Magnesium Hydroxide (Milk Of Magnesia 30 Ml Oral.Susp) 30 ml PO DAILY PRN PRN Reason: Constipation Nicotine (Nicotine 21 Mg Patch.Td24) 21 mg TRANSDERMA DAILY PRN PRN Reason: nicotine cravings Last Admin: 03/06/24 10:16 Dose: 21 mg Nicotine Polacrilex (Nicotine Polacrilex 2 Mg Gum) 4 mg BUCCAL Q1H PRN PRN Reason: Nicotine Cravings Last Admin: 03/07/24 14:08 Dose: 4 mg Olanzapine (Olanzapine 5 Mg Tablet) 5 mg PO Q4H PRN PRN Reason: agitation Trazodone HCl (Trazodone Hcl 50 Mg Tablet) 50 mg PO BEDTIME MRX1 PRN PRN Reason: Insomnia Allergies Allergies Allergy/AdvReac Type Severity Reaction Status Date / Time No Known Allergies Allergy Verified 03/05/24 02:56 Assessment & Plan Assessment & Plan (1) Autism spectrum disorder: Status: Acute Code(s): F84.0 - Autistic disorder (2) Depressive disorder: Status: Resolved Code(s): F32.A - Depression, unspecified Plan 03/06: decrease lexapro from 20 mg daily to 10 mg daily due to emotional numbing at high doses. start wellbutrin 150 mg daily as adjunctive anti-depressant. 03/07: no issues with medications. continue wellbutrin 150 x 3 days, then increase to 300 mg daily as of 03/10 (orders placed). Reason for continued inpatient stay Substantial Risk for: harm to self, inability to function and rapid decompensation Time Spent With Patient Time: Total time managing care of this patient today __25__ minutes.
[2024-03-07 20:00] VITALS: BP 116/59; PULSE 75; RESP 18; TEMP 37.1; O2SAT 98
[2024-03-08] MEDS: Nicotine Polacrilex 2 MG GUM 4 MG BUCCAL ×7 (00:23→22:20)
[2024-03-08] MEDS: busPIRone HCl 10 MG TABLET PO ×2 (09:06→20:51)
[2024-03-08] MEDS: buPROPion HCl XL 150 MG TAB.ER.24H PO (09:06)
[2024-03-08] MEDS: Escitalopram Oxalate 10 MG TABLET PO (09:06)
--- NOTE | 2024-03-08 12:20 | P.PNPSI_ITS ---
Subjective Subjective Date of Service: 03/08/24 Reason For Visit: SI Subjective Notes: Conditional Voluntary and 3 Day Interim History: The nursing staff reported the patient was very angry with his ex-roommate who was masturbating in his room publicly. The patient was able to deescalate after his roommate was removed. He slept well last night he had been going to groups. On interview the patient denies new symptoms. Mental Status Exam Mental Status Exam Patient Appearance: Well Grooomed and Appropriate Patient Orientation: Person and Situation Level of Consciousness: Awake and Appropriate Patient Behavior: Guarded and Passive Mood Description: Withdrawn Affect Description: Calm Patient Cognition Impaired: Yes Ability to Follow Directions: Good Speech Pattern: Clear Memory Description: Working Impaired Delusions: Not Present Thought Process: Distracted Thought Content: positive for Phyllis Judgement: Fair Diagnostics Vital Signs (24Hr): Vital Signs - 24 hr 03/07/24 20:00 Temperature 98.7 F Pulse Rate 75 Respiratory Rate 18 Blood Pressure 116/59 L Pulse Oximetry 98 Oxygen Delivery Method Room Air BMI result Body Mass Index 22.4 Labs 03/05/24 03:15 03/05/24 03:15 Medications Medications Current Medications Acetaminophen (Acetaminophen 325 Mg Tablet) 650 mg PO Q6H PRN PRN Reason: Headache/Pain Mild Scale (1-3) Al Hydroxide/Mg Hydroxide (Magnesium Hydrox/Alum Hydrox 30 Ml Oral.Susp) 30 ml PO Q6H PRN PRN Reason: Heartburn/Nausea Bupropion HCl (Bupropion Hcl Xl 150 Mg Tab.Er.24h) 150 mg PO DAILY [facility] Stop: 03/09/24 09:01 Last Admin: 03/08/24 09:06 Dose: 150 mg Bupropion HCl (Bupropion Hcl Xl 300 Mg Tab.Er.24h) 300 mg PO DAILY [facility] Buspirone HCl (Buspirone Hcl 10 Mg Tablet) 10 mg PO BID [facility] Last Admin: 03/08/24 09:06 Dose: 10 mg Escitalopram Oxalate (Escitalopram Oxalate 10 Mg Tablet) 10 mg PO DAILY [facility] Last Admin: 03/08/24 09:06 Dose: 10 mg Hydroxyzine HCl (Hydroxyzine Hcl 25 Mg Tablet) 25 mg PO Q6H PRN PRN Reason: Anxiety Magnesium Hydroxide (Milk Of Magnesia 30 Ml Oral.Susp) 30 ml PO DAILY PRN PRN Reason: Constipation Nicotine (Nicotine 21 Mg Patch.Td24) 21 mg TRANSDERMA DAILY PRN PRN Reason: nicotine cravings Last Admin: 03/06/24 10:16 Dose: 21 mg Nicotine Polacrilex (Nicotine Polacrilex 2 Mg Gum) 4 mg BUCCAL Q1H PRN PRN Reason: Nicotine Cravings Last Admin: 03/08/24 11:30 Dose: 4 mg Olanzapine (Olanzapine 5 Mg Tablet) 5 mg PO Q4H PRN PRN Reason: agitation Trazodone HCl (Trazodone Hcl 50 Mg Tablet) 50 mg PO BEDTIME [id number] PRN PRN Reason: Insomnia Allergies Allergies Allergy/AdvReac Type Severity Reaction Status Date / Time No Known Allergies Allergy Verified 03/05/24 02:56 Assessment & Plan Assessment & Plan (1) Autism spectrum disorder: Status: Acute Code(s): F84.0 - Autistic disorder (2) Depressive disorder: Status: Resolved Code(s): F32.A - Depression, unspecified Plan 03/06: decrease lexapro from 20 mg daily to 10 mg daily due to emotional numbing at high doses. start wellbutrin 150 mg daily as adjunctive anti-depressant. 03/07: no issues with medications. continue wellbutrin 150 x 3 days, then increase to 300 mg daily as of 03/10 (orders placed). 03/08 keep same treatment Reason for continued inpatient stay Substantial Risk for: inability to function, rapid decompensation and med/psych decompensation Time Spent With Patient Time: Total time managing care of this patient today __20__ minutes.
[2024-03-08 20:00] VITALS: BP 127/72; PULSE 89; RESP 18; TEMP 36.8; O2SAT 97
[2024-03-09] MEDS: Nicotine Polacrilex 2 MG GUM 4 MG BUCCAL ×8 (01:36→21:12)
[2024-03-09] MEDS: busPIRone HCl 10 MG TABLET PO ×2 (09:56→21:12)
[2024-03-09] MEDS: Escitalopram Oxalate 10 MG TABLET PO (09:56)
[2024-03-09] MEDS: buPROPion HCl XL 150 MG TAB.ER.24H PO (09:56)
--- NOTE | 2024-03-09 13:30 | P.PNPSI_ITS ---
Subjective Subjective Date of Service: 03/09/24 Reason For Visit: SI Subjective Notes: 3 Day Interim History: The nursing staff reported the patient had been calm in the morning cooperative social, at night he was pacing self dialogue in, he slept only 3 hours. On interview the patient denies new symptoms refused to elaborate why he slept poorly last night Mental Status Exam Mental Status Exam Patient Appearance: Appropriate Patient Orientation: Person Level of Consciousness: Awake and Appropriate Patient Behavior: Guarded and Passive Mood Description: Withdrawn Affect Description: Constricted Patient Cognition Impaired: Yes Ability to Follow Directions: Good Speech Pattern: Clear Hallucinations: None Delusions: Ideas of Reference Thought Process: Distracted and Slowed Thinking Thought Content: positive for [place] and positive for Poverty of Content Judgement: Fair Diagnostics Vital Signs (24Hr): Vital Signs - 24 hr 03/08/24 20:00 Temperature 98.2 F Pulse Rate 89 Respiratory Rate 18 Blood Pressure 127/72 Pulse Oximetry 97 Oxygen Delivery Method Room Air BMI result Body Mass Index 22.4 Labs 03/05/24 03:15 03/05/24 03:15 Medications Medications Current Medications Acetaminophen (Acetaminophen 325 Mg Tablet) 650 mg PO Q6H PRN PRN Reason: Headache/Pain Mild Scale (1-3) Al Hydroxide/Mg Hydroxide (Magnesium Hydrox/Alum Hydrox 30 Ml Oral.Susp) 30 ml PO Q6H PRN PRN Reason: Heartburn/Nausea Bupropion HCl (Bupropion Hcl Xl 300 Mg Tab.Er.24h) 300 mg PO DAILY [facility] Buspirone HCl (Buspirone Hcl 10 Mg Tablet) 10 mg PO BID [facility] Last Admin: 03/09/24 09:56 Dose: 10 mg Escitalopram Oxalate (Escitalopram Oxalate 10 Mg Tablet) 10 mg PO DAILY [facility] Last Admin: 03/09/24 09:56 Dose: 10 mg Hydroxyzine HCl (Hydroxyzine Hcl 25 Mg Tablet) 25 mg PO Q6H PRN PRN Reason: Anxiety Magnesium Hydroxide (Milk Of Magnesia 30 Ml Oral.Susp) 30 ml PO DAILY PRN PRN Reason: Constipation Nicotine (Nicotine 21 Mg Patch.Td24) 21 mg TRANSDERMA DAILY PRN PRN Reason: nicotine cravings Last Admin: 03/06/24 10:16 Dose: 21 mg Nicotine Polacrilex (Nicotine Polacrilex 2 Mg Gum) 4 mg BUCCAL Q1H PRN PRN Reason: Nicotine Cravings Last Admin: 03/09/24 03:26 Dose: 4 mg Olanzapine (Olanzapine 5 Mg Tablet) 5 mg PO Q4H PRN PRN Reason: agitation Trazodone HCl (Trazodone Hcl 50 Mg Tablet) 50 mg PO BEDTIME MRX1 PRN PRN Reason: Insomnia Allergies Allergies Allergy/AdvReac Type Severity Reaction Status Date / Time No Known Allergies Allergy Verified 03/05/24 02:56 Assessment & Plan Assessment & Plan (1) Autism spectrum disorder: Status: Acute Code(s): F84.0 - Autistic disorder (2) Depressive disorder: Status: Resolved Code(s): F32.A - Depression, unspecified Plan 03/06: decrease lexapro from 20 mg daily to 10 mg daily due to emotional numbing at high doses. start wellbutrin 150 mg daily as adjunctive anti-depressant. 03/07: no issues with medications. continue wellbutrin 150 x 3 days, then increase to 300 mg daily as of 03/10 (orders placed). 03/08 keep same treatment 03/09 keep same treatment Reason for continued inpatient stay Substantial Risk for: inability to function, rapid decompensation and med/psych decompensation Time Spent With Patient Time: Total time managing care of this patient today __20__ minutes.
--- NOTE | 2024-03-09 13:38 | HO.PSYCHPN ---
Subjective Subjective Reason For Visit: SI Diagnostics Vital Signs (24Hr): Vital Signs - 24 hr 03/08/24 20:00 Temperature 98.2 F Pulse Rate 89 Respiratory Rate 18 Blood Pressure 127/72 Pulse Oximetry 97 Oxygen Delivery Method Room Air BMI result Body Mass Index 22.4 Labs 03/05/24 03:15 03/05/24 03:15 Medications Medications Current Medications Acetaminophen (Acetaminophen 325 Mg Tablet) 650 mg PO Q6H PRN PRN Reason: Headache/Pain Mild Scale (1-3) Al Hydroxide/Mg Hydroxide (Magnesium Hydrox/Alum Hydrox 30 Ml Oral.Susp) 30 ml PO Q6H PRN PRN Reason: Heartburn/Nausea Bupropion HCl (Bupropion Hcl Xl 300 Mg Tab.Er.24h) 300 mg PO DAILY [facility] Buspirone HCl (Buspirone Hcl 10 Mg Tablet) 10 mg PO BID [facility] Last Admin: 03/09/24 09:56 Dose: 10 mg Escitalopram Oxalate (Escitalopram Oxalate 10 Mg Tablet) 10 mg PO DAILY [facility] Last Admin: 03/09/24 09:56 Dose: 10 mg Hydroxyzine HCl (Hydroxyzine Hcl 25 Mg Tablet) 25 mg PO Q6H PRN PRN Reason: Anxiety Magnesium Hydroxide (Milk Of Magnesia 30 Ml Oral.Susp) 30 ml PO DAILY PRN PRN Reason: Constipation Nicotine (Nicotine 21 Mg Patch.Td24) 21 mg TRANSDERMA DAILY PRN PRN Reason: nicotine cravings Last Admin: 03/06/24 10:16 Dose: 21 mg Nicotine Polacrilex (Nicotine Polacrilex 2 Mg Gum) 4 mg BUCCAL Q1H PRN PRN Reason: Nicotine Cravings Last Admin: 03/09/24 03:26 Dose: 4 mg Olanzapine (Olanzapine 5 Mg Tablet) 5 mg PO Q4H PRN PRN Reason: agitation Trazodone HCl (Trazodone Hcl 50 Mg Tablet) 50 mg PO BEDTIME MRX1 PRN PRN Reason: Insomnia Allergies Allergies Allergy/AdvReac Type Severity Reaction Status Date / Time No Known Allergies Allergy Verified 03/05/24 02:56 Assessment & Plan Assessment & Plan (1) Autism spectrum disorder: Status: Acute Code(s): F84.0 - Autistic disorder (2) Depressive disorder: Status: Resolved Code(s): F32.A - Depression, unspecified Plan 03/06: decrease lexapro from 20 mg daily to 10 mg daily due to emotional numbing at high doses. start wellbutrin 150 mg daily as adjunctive anti-depressant. 03/07: no issues with medications. continue wellbutrin 150 x 3 days, then increase to 300 mg daily as of 03/10 (orders placed). 03/08 keep same treatment 03/09 keep same treatment Time Spent With Patient Time: Total time managing care of this patient today ____ minutes.
[2024-03-09 19:40] VITALS: BP 121/96; PULSE 74; RESP 16; TEMP 38.1; O2SAT 98
[2024-03-09 20:06] VITALS: TEMP 37
[2024-03-10] MEDS: Nicotine Polacrilex 2 MG GUM 4 MG BUCCAL ×8 (01:00→23:25)
[2024-03-10] MEDS: Escitalopram Oxalate 10 MG TABLET PO (09:01)
[2024-03-10] MEDS: busPIRone HCl 10 MG TABLET PO ×2 (09:01→21:45)
[2024-03-10] MEDS: buPROPion HCl XL 300 MG TAB.ER.24H PO (09:02)
--- NOTE | 2024-03-10 12:07 | HO.PSYCHPN ---
Subjective Subjective Date of Service: 03/10/24 Reason For Visit: SI Interim History: met with patient; discussed with team; reviewed chart patient saying he's feeling much better because of Wellbutrin, Lexapro and buspar and that he's had no SI for a week now. Pt denies AVH at all; he says when pacing the halls he is singing to himself, but is clear to distinguish this from any talking to himself. Pt says he's feeling ready for discharge and signed a 3 day notice. Mental Status Exam Mental Status Exam Narrative: Pt is alert and oriented; behavior is vague but cooperative, polite, and calm; patient is not in distress; dressed in casual attire, unkempt; mood is described as good and affect congruent; eye contact appropriate; Speech is normal rate, volume and prosody and not pressured; no psychomotor agitation/retardation present; thought process is organized and goal directed; Thought content is on treatment tx; otherwise pertinent to relevant topics and without any delusional content, paranoid ideations or grandiosity; denies any SI/HI. There is no evidence of perceptual disturbance. Patients insight and judgment appear intact. Diagnostics Vital Signs (24Hr): Vital Signs - 24 hr 03/09/24 19:40 03/09/24 20:06 Temperature 100.5 F H 98.6 F Pulse Rate 74 Respiratory Rate 16 Blood Pressure 121/96 H Pulse Oximetry 98 Oxygen Delivery Method Room Air BMI result Body Mass Index 22.4 Labs 03/05/24 03:15 03/05/24 03:15 Medications Medications Current Medications Acetaminophen (Acetaminophen 325 Mg Tablet) 650 mg PO Q6H PRN PRN Reason: Headache/Pain Mild Scale (1-3) Al Hydroxide/Mg Hydroxide (Magnesium Hydrox/Alum Hydrox 30 Ml Oral.Susp) 30 ml PO Q6H PRN PRN Reason: Heartburn/Nausea Bupropion HCl (Bupropion Hcl Xl 300 Mg Tab.Er.24h) 300 mg PO DAILY [facility] Last Admin: 03/10/24 09:02 Dose: 300 mg Buspirone HCl (Buspirone Hcl 10 Mg Tablet) 10 mg PO BID [facility] Last Admin: 03/10/24 09:01 Dose: 10 mg Escitalopram Oxalate (Escitalopram Oxalate 10 Mg Tablet) 10 mg PO DAILY [facility] Last Admin: 03/10/24 09:01 Dose: 10 mg Hydroxyzine HCl (Hydroxyzine Hcl 25 Mg Tablet) 25 mg PO Q6H PRN PRN Reason: Anxiety Magnesium Hydroxide (Milk Of Magnesia 30 Ml Oral.Susp) 30 ml PO DAILY PRN PRN Reason: Constipation Nicotine (Nicotine 21 Mg Patch.Td24) 21 mg TRANSDERMA DAILY PRN PRN Reason: nicotine cravings Last Admin: 03/06/24 10:16 Dose: 21 mg Nicotine Polacrilex (Nicotine Polacrilex 2 Mg Gum) 4 mg BUCCAL Q1H PRN PRN Reason: Nicotine Cravings Last Admin: 03/10/24 09:02 Dose: 4 mg Olanzapine (Olanzapine 5 Mg Tablet) 5 mg PO Q4H PRN PRN Reason: agitation Trazodone HCl (Trazodone Hcl 50 Mg Tablet) 50 mg PO BEDTIME MRX1 PRN PRN Reason: Insomnia Allergies Allergies Allergy/AdvReac Type Severity Reaction Status Date / Time No Known Allergies Allergy Verified 03/05/24 02:56 Assessment & Plan Assessment & Plan (1) Autism spectrum disorder: Status: Acute Code(s): F84.0 - Autistic disorder (2) Depressive disorder: Status: Resolved Code(s): F32.A - Depression, unspecified Plan HPI: per CARE team haylie pt self-presented to [facility] [place] [facility] c/o depression with SI with plan to hang self, with preparatory actions (obtained rope and scouted places to hang self). he was able to identify the recent loss of an aunt and a close friend (suicided 01/2024) as particularly relevant. reported SI for one week. reports taking meds as prescribed, but feels they are no longer working for him. endorsed insomnia with DFA as well as anorexia. on interview with MD, above narrative reiterated. conversation then focused on pt's perception that his medications regimen was no longer working for him and needed to be changed. pt reported emotional numbing on higher doses of lexapro. he requested a dose reduction and felt 10 mg was preferable to 15 mg. adjunctive strategies were discussed, with wellbutrin being identified as best initial option. R/B discussed, including, anxiety, insomnia, agitation, and seizure. pt agreeable to begin trial. Hospital course: 03/10 patient saying he's feeling much better because of Wellbutrin, Lexapro and buspar and that he's had no SI for a week now. Pt denies AVH at all; he says when pacing the halls he is singing to himself, but is clear to distinguish this from any talking to himself. Pt says he's feeling ready for discharge and signed a 3 day notice. -psychosocial rehabilitation counselor reports needs appointments but has a place to go Plan: 3 day q15min continue wellbutrin, lexapro, buspar Patient educated on: diagnosis and medication risk/benefits Informed Consent: understands Reason for continued inpatient stay Substantial Risk for: stable for discharge and med/psych decompensation Time Spent With Patient Time: Total time managing care of this patient today ____ minutes.
--- NOTE | 2024-03-10 15:22 | PC.NURSE ---
Patient transferred to [facility] without incidence. Hand off report given to Eli Shearer RN. All belongings taken with patient. Accompanied by security to floor.
[2024-03-10 20:00] VITALS: RESP 16
[2024-03-11] MEDS: Nicotine Polacrilex 2 MG GUM 4 MG BUCCAL ×6 (01:35→23:15)
[2024-03-11 08:00] VITALS: RESP 14
[2024-03-11] MEDS: Escitalopram Oxalate 10 MG TABLET PO (08:36)
[2024-03-11] MEDS: busPIRone HCl 10 MG TABLET PO ×2 (08:36→21:01)
[2024-03-11] MEDS: buPROPion HCl XL 300 MG TAB.ER.24H PO (08:36)
--- NOTE | 2024-03-11 09:48 | HO.PSYCHPN ---
Subjective Subjective Date of Service: 03/11/24 Reason For Visit: SI Interim History: met with patient; discussed with team irritable this morning but patient remains stable; no SI and focused on discharge. Mental Status Exam Mental Status Exam Narrative: Pt is alert and oriented; behavior is overall cooperative, polite, and calm; patient is not in distress; dressed in casual attire, unkempt; mood is described as good and affect congruent; eye contact appropriate; Speech is normal rate, volume and prosody and not pressured; no psychomotor agitation/retardation present; thought process is organized and goal directed; Thought content is on treatment tx; otherwise pertinent to relevant topics and without any delusional content, paranoid ideations or grandiosity; denies any SI/HI. There is no evidence of perceptual disturbance. Patients insight and judgment are fair Diagnostics Vital Signs (24Hr): Vital Signs - 24 hr 03/10/24 20:00 03/11/24 08:00 Respiratory Rate 16 14 BMI result Body Mass Index 22.4 Labs 03/05/24 03:15 03/05/24 03:15 Medications Medications Current Medications Acetaminophen (Acetaminophen 325 Mg Tablet) 650 mg PO Q6H PRN PRN Reason: Headache/Pain Mild Scale (1-3) Al Hydroxide/Mg Hydroxide (Magnesium Hydrox/Alum Hydrox 30 Ml Oral.Susp) 30 ml PO Q6H PRN PRN Reason: Heartburn/Nausea Bupropion HCl (Bupropion Hcl Xl 300 Mg Tab.Er.24h) 300 mg PO DAILY [facility] Last Admin: 03/11/24 08:36 Dose: 300 mg Buspirone HCl (Buspirone Hcl 10 Mg Tablet) 10 mg PO BID [facility] Last Admin: 03/11/24 08:36 Dose: 10 mg Escitalopram Oxalate (Escitalopram Oxalate 10 Mg Tablet) 10 mg PO DAILY [facility] Last Admin: 03/11/24 08:36 Dose: 10 mg Hydroxyzine HCl (Hydroxyzine Hcl 25 Mg Tablet) 25 mg PO Q6H PRN PRN Reason: Anxiety Magnesium Hydroxide (Milk Of Magnesia 30 Ml Oral.Susp) 30 ml PO DAILY PRN PRN Reason: Constipation Nicotine (Nicotine 21 Mg Patch.Td24) 21 mg TRANSDERMA DAILY PRN PRN Reason: nicotine cravings Last Admin: 03/06/24 10:16 Dose: 21 mg Nicotine Polacrilex (Nicotine Polacrilex 2 Mg Gum) 4 mg BUCCAL Q1H PRN PRN Reason: Nicotine Cravings Last Admin: 03/11/24 01:35 Dose: 4 mg Olanzapine (Olanzapine 5 Mg Tablet) 5 mg PO Q4H PRN PRN Reason: agitation Trazodone HCl (Trazodone Hcl 50 Mg Tablet) 50 mg PO BEDTIME MRX1 PRN PRN Reason: Insomnia Allergies Allergies Allergy/AdvReac Type Severity Reaction Status Date / Time No Known Allergies Allergy Verified 03/05/24 02:56 Assessment & Plan Assessment & Plan (1) Autism spectrum disorder: Status: Acute Code(s): F84.0 - Autistic disorder (2) Depressive disorder: Status: Resolved Code(s): F32.A - Depression, unspecified Plan HPI: per CARE team ozzy stallings self-presented to [facility] [place] [facility] c/o depression with SI with plan to hang self, with preparatory actions (obtained rope and scouted places to hang self). he was able to identify the recent loss of an aunt and a close friend (suicided 01/2024) as particularly relevant. reported SI for one week. reports taking meds as prescribed, but feels they are no longer working for him. endorsed insomnia with DFA as well as anorexia. on interview with MD, above narrative reiterated. conversation then focused on pt's perception that his medications regimen was no longer working for him and needed to be changed. pt reported emotional numbing on higher doses of lexapro. he requested a dose reduction and felt 10 mg was preferable to 15 mg. adjunctive strategies were discussed, with wellbutrin being identified as best initial option. R/B discussed, including, anxiety, insomnia, agitation, and seizure. pt agreeable to begin trial. Hospital course: 03/10 patient saying he's feeling much better because of Wellbutrin, Lexapro and buspar and that he's had no SI for a week now. Pt denies AVH at all; he says when pacing the halls he is singing to himself, but is clear to distinguish this from any talking to himself. Pt says he's feeling ready for discharge and signed a 3 day notice. -licensed social worker reports needs appointments but has a place to go 03/11 patient remained stable; wants discharge. He has returned to baseline, saying his mood is much improved and denied any SI at all. Patient is not in imminent risk for harm to self or others and appropriate to return to the community for treatment. Request for discharge honored. Plan: 3 day q15min continue wellbutrin, lexapro, buspar Reason for continued inpatient stay Substantial Risk for: stable for discharge Time Spent With Patient Time: Total time managing care of this patient today ____ minutes.
[2024-03-11] MEDS: Nicotine 21 MG PATCH.TD24 TRANSDERMA (10:44)
[2024-03-12] MEDS: Nicotine Polacrilex 2 MG GUM 4 MG BUCCAL (00:38)
[2024-03-12] MEDS: Escitalopram Oxalate 10 MG TABLET PO (08:23)
[2024-03-12] MEDS: busPIRone HCl 10 MG TABLET PO (08:23)
[2024-03-12] MEDS: buPROPion HCl XL 300 MG TAB.ER.24H PO (08:23)
--- NOTE | 2024-03-12 10:41 | P.DS_ITS ---
DS: Providers Provider Date of Service: 03/12/24 Date of admission: 03/05/24 15:09 Date of discharge: 03/12/24 Primary care physician: Andrew Sheikh MD Attending physician on admission: Ru Matta Attending physician on discharge: Ru Matta DS: Diagnosis Discharge Diagnosis (1) Autism spectrum disorder: Status: Acute (2) Depressive disorder: Status: Resolved DS: Medications Discharge Medications Home Medications: Previous Rx's ?Medication ?Instructions ?Recorded bupropion HCl 300 mg 24 hr tablet, 300 mg PO DAILY 30 days #30 tabs 03/12/24 extended release buspirone 10 mg tablet 10 mg PO BID 30 days #60 tabs 03/12/24 escitalopram oxalate 10 mg tablet 10 mg PO DAILY 30 days #30 tabs 03/12/24 (Lexapro) nicotine (polacrilex) 4 mg gum 4 mg buccal Q2H 30 days #100 ea 03/12/24 Data Data Completed and Pending Completed studies during hospitalization [Text1]: 03/05/24 13:57 Urine Color Yellow Urine Appearance Turbid Urine pH 6.5 Ur Specific Elizabeth >= 1.030 H Urine Protein Negative Urine Glucose (UA) Negative Urine Ketones Negative Urine Blood Negative Urine Nitrite Negative Ur Leukocyte Esterase Negative Urine Opiates Screen Not Detected Ur Buprenorphine Scrn Not Detected Ur Oxycodone Screen Not Detected Urine Methadone Screen Not Detected Urine Fentanyl Screen Not Detected Ur Barbiturates Screen Not Detected Ur Phencyclidine Scrn Not Detected Ur Amphetamines Screen Not Detected U Benzodiazepines Scrn Not Detected Urine Cocaine Screen Not Detected U Marijuana (THC) Screen POSITIVE H DS: Summary Hospital Course Hospital Course: some thoughts patient may have an psychotic illness as he was intermittently witnessed self-dialoguing (which he denies) Time Spent with Patient Time attestation: Total time managing care of this patient today ____ minutes. Discharge Plan Discharge Anticipated Discharge Date/Time: 03/12/24 11:00 Patient Disposition: Home, Self-Care Discharge Diagnosis: MDD, recurrent, severe, w/out psychosis, in full remission (R/0 Schizoaffective DO, depressed type) Referrals: Glendy Tilley (Therapy) [Other] - 03/19/24 3:00 pm (IN OFFICE APPOINTMENT -Please arrive 15 minutes early to your appointment. ) Glendy Broderick (Psychiatry) [Other] - 04/10/24 10:00 am (TELEHEALTH APPOINTMENT -Psychiatric Evaluation ) Glendy Broderick (Psychiatry) [Other] - 05/07/24 9:40 am (TELEHEALTH APPOINTMENT -Medication Management ) Andrew Sheikh MD [Primary Care Provider] - 1 Week Discharge Medications: New bupropion HCl 300 mg Tablet Extended Release 24 Hr 300 mg PO DAILY 30 Days Qty: 30 0RF Continued buspirone 10 mg Tablet 10 mg PO BID 30 Days Qty: 60 0RF escitalopram oxalate [Lexapro] 10 mg tablet 10 mg PO DAILY 30 Days Qty: 30 0RF Changed nicotine (polacrilex) 4 mg gum 4 mg buccal Q2H 30 Days Qty: 100 0RF Discontinued nicotine 7 mg/24 hr Patch 24 Hour 7 mg transdermal DAILY PRN (Reason: nicotine cravings) 28 Days Qty: 28 0RF Discharge Orders: Discharge Order (Routine); Ordered 03/12/24 Ordered By: Ru Matta Diet: Regular diet Activity on Discharge: As tolerated Stand Alone Forms: Patient Portal Discharge page, Community Support Print Language: Citizen Of [place] Care Plan Goals: Maintain mood and safe behaviors Take medications as prescribed Practice coping skills Continue with outpatient providers and reach out to them as needed Health Concerns: Mood stability and behaviors Sobriety from Cannabis Plan of Treatment: Follow up with your PCP, psychiatric provider and other outpatient providers regarding above concerns Take medications as prescribed Assessment: Risk assessment at time of discharge:? Patient was interviewed prior to discharge and found to be fully oriented and without any SI or HI. Patient has improved insight and judgment and wants to continue treatment. Patient is not in imminent risk of harm to self or others and has a safety plan that includes presenting to the closest ER or calling 911 if feeling unsafe.? Patient has been observed closely by nursing and unit staff throughout admission; patient has not engaged in any behaviors that suggest dangerousness to self or others and has demonstrated appropriate behaviors and impulse control
== END 2024-03-12 11:15 | disposition home or self-care (01) | DRG 751 ==
LOC: HO.ED 07:33 → HO.PADLT16 15:53 → HO.PM5 03-10 15:31
PROVIDERS: Admitting Provider Psychiatry & Neurology Psychiatry; Emergency Provider Emergency Medicine Emergency Medical Services; PCP Internal Medicine; Visit Provider Psychiatry & Neurology Psychiatry
DX: F33.2 Major depressive disorder, recurrent severe without psychotic features (principal); R45.851 Suicidal ideations; F84.0 Autistic disorder; F17.210 Nicotine dependence, cigarettes, uncomplicated; Z71.6 Tobacco abuse counseling; Z79.899 Other long term (current) drug therapy
CPT/HCPCS: 36415; 80053; 80307; 81003; 85025; 99285; S9485

== ENCOUNTER → 2024-03-05 15:09 | Outpatient (BNV) | payer OTHER, SELFPAY | PROVIDERS: Admitting Provider Psychiatry & Neurology Psychiatry; Emergency Provider Emergency Medicine Emergency Medical Services; PCP Internal Medicine; Visit Provider Psychiatry & Neurology Psychiatry | DX: F32.2 Major depressive disorder, single episode, severe without psychotic features (principal); F84.0 Autistic disorder | CPT/HCPCS: 99231; 99232; 99233 ==

== ENCOUNTER 2024-09-13 12:44 | Inpatient (IN) | payer OTHER, SELFPAY ==
[2024-09-13 12:48] VITALS: BP 99/64; PULSE 101; RESP 18; TEMP 36.6; O2SAT 98; BMI 18.6
--- NOTE | 2024-09-13 12:49 | ED.PSYCH ---
HPI - Psych General Chief Complaint: Psychiatric Symptoms Stated Complaint: depression, anxiety Time Seen by Provider: 09/13/24 12:50 Source: patient Mode of arrival: ambulatory Limitations: no limitations History of Present Illness ED Provider: ÁNGELA MARSH PA-C HPI Narrative: 29 year old male with pmhx significant for autism, anxiety, and depression presents to the ED today for evaluation of depression and SI. Reports increasing depressive thoughts more recently due to family/work issues and a recent break up. He reports compliance with his lexapro, no missed doses. Admits to thinking about cutting his wrists this morning with a knife. Denies attempting to do so, self presented to the ED instead. Denies any physical complaints at present. Denies illicit substance abuse or alcohol consumption. Denies //. Related Data Home Medications ?Medication ?Instructions ?Recorded ?Confirmed escitalopram oxalate 10 mg tablet 20 mg PO DAILY 09/13/24 09/13/24 (Lexapro) Allergies Allergy/AdvReac Type Severity Reaction Status Date / Time No Known Allergies Allergy Verified 09/13/24 12:51 Review of Systems Review of Systems: Yes all other systems are reviewed and are negative COUNTS INCLUDE 234 BEDS AT THE [facility] Past Medical History Attestation statement: The following information was validated with the patient. Source: old records reviewed and nursing notes reviewed Medical History Routine medical exam Autism spectrum disorder Social History Social History Household Members: None Household Members Other:: Pt sleeping. Attempted to awaken by both [facility] and this nurse. Housing: Apartment Do you presently have visiting nurse or other home services: No Alcohol intake: current Alcohol intake frequency: holidays/special occasions only Patient Tobacco Use Status: Current everyday Tobacco user Tobacco use type: Cigarette Cigarette Packs Per Day: 0.5 Cigarettes Per Day: 10.0 Smoked in Last 30 Days: Yes e-Cigarette/Vaping Use: Never Used Patient Interested in Nicotine Replacement: Yes Second Hand Smoke Exposure: No Use of substances other than those prescribed or required for medical reasons: No Substance Use Type: Marijuana Currently Displaying Signs/Symptoms of Drug Intoxication Withdrawal: No Have you been hit, kicked, punched, or otherwise hurt by someone within the past year? If so, by whom?: No Do you feel safe in your current relationship?: No Current Relationship Is there a partner from a previous relationship who is making you feel unsafe now?: No Are you made to feel afraid or neglected: No Spiritual Healthcare Practices: None Rastafarian Healthcare Practices: None Cultural Healthcare Practices: None Advance Directives: No Advance Directives Information Provided: No Do you have thoughts of harming others: None Do you have a plan to hurt others: No Plan Recently lost weight without trying: No Eating poorly because of decreased appetite: No Nutrition Risks: No Nutritional Risk Poor oral hygiene: No service: No Sexual orientation: Decline to Answer Physical Exam Vital Signs: Vital Signs: Last Vital Signs Temp 98.3 F 09/15/24 15:18 Pulse 74 09/15/24 15:18 Resp 17 09/15/24 15:18 BP 121/54 L 09/15/24 15:18 Pulse Ox 100 09/15/24 15:18 O2 Del Method Room Air 09/15/24 15:18 BMI result Body Mass Index 18.6 tachycardic, vitals are otherwise wnl General: Well appearing, in no acute distress. Skin: Warm, dry, intact. No rashes or lesions. Head: Normocephalic, atraumatic. EENT: Hearing is intact b/l. Conjunctiva clear. Sclera is anicteric. PERRLA. EOM intact. Moist mucous membranes.? Cardiac: Chest wall symmetric. RRR Lungs: Normal respiratory effort without accessory muscle use. CTA bilaterally. Abdomen: Soft, non-tender, non-distended. No rebound tenderness or guarding. Positive BS x4. Back: No midline spinous or paraspinal tenderness. No step off deformity. Ext: Upper and lower extremities atraumatic, without tenderness, deformity, swelling or erythema. no self harm velasquez. Neuro: AOx3. Normal speech. CN 2-12 grossly intact. Ambulating with steady gait. Course Course Course Narrative: CBC without leukocytosis or left shift. Normocytic anemia, H&H above transfusion threshold. Chemistry without acute electrolyte abnormality requiring intervention. Liver function at baseline. UA/UDS pending. Care team consult pending. Placed in physician observation at this time. Reevaluation(s) Reevaluation #1: Time: 07:35 Date: 09/14/24 Provider: Tonya Malik, DO Patient in physician observation for psychiatric evaluation.? No acute events reported overnight. No current complaints. VS stable.? Patient is pending CARE team. Will continue to monitor. Reevaluation #2: DR. López's progress note 09/15/2024 10:48. VSS, no issue reported by nursing overnight, care team input is appreciated, patient meet criteria for inpatient treatment, patient is under section 12, expected to leave to today. Time: 10:50 Reevaluation #3: admitted 1451 09/16/24 SAUL end physician observation 1451 Medications Administered Generic Name Dose Route Start Last Admin Trade Name Freq PRN Reason Stop Dose Admin Escitalopram Oxalate 20 mg 09/16/24 09:00 09/16/24 09:04 Escitalopram Oxalate 20 Mg Tablet PO 20 mg DAILY GABI Administration Nicotine 21 mg 09/16/24 09:00 09/16/24 09:13 Nicotine 21 Mg Patch.Td24 TRANSDERMA Not Given DAILY GABI Nicotine Polacrilex 4 mg 09/15/24 15:06 09/16/24 12:06 Nicotine Polacrilex 2 Mg Gum BUCCAL 4 mg Q2H PRN Administration Nicotine Cravings Quetiapine Fumarate 50 mg 09/15/24 21:00 09/15/24 21:09 Quetiapine Fumarate 50 Mg Tablet PO 50 mg BEDTIME GABI Administration Discontinued Medications Generic Name Dose Route Start Last Admin Trade Name Freq PRN Reason Stop Dose Admin Nicotine Polacrilex 2 mg 09/14/24 13:31 09/15/24 13:47 Nicotine Polacrilex 2 Mg Gum BUCCAL 2 mg Q2H PRN Administration Nicotine Cravings Medical Decision Making Medical Decision Making MDM Narrative: 29 year old male with pmhx significant for autism, anxiety, and depression presents to the ED today for evaluation of depression and SI. Differential diagnosis includes anemia, electrolyte abnormality, mood disorder, anxiety, depression, SI, polysubstance abuse Presentation not consistent with acute organic causes to include delirium, dementia or drug induced disorders (acute ingestions or withdrawal; no evidence of toxidrome).? Given the H&P, I suspect this patient is suicidal and will require observation. Patient brought back to our behavioral pod. Will consult care team to evaluate the patient. Will also obtain labs for medical clearance. Plan: labs, EKG, ASA/APAP levels, ETOH level, UDS, care team consultation, reassessment Differential Diagnosis Differential Diagnoses: The differential diagnosis associated with the presentation includes as above. Lab Data 09/13/24 13:57 09/13/24 13:57 Labs: Lab Results 09/13/24 09/13/24 Range/Units 13:57 19:14 WBC 8.2 (4.8-10.8) X10*3/uL RBC 4.08 L (4.60-5.80) X10*6/uL Hgb 12.5 L (14.0-18.0) g/dl Hct 37.1 L (42.0-52.0) % MCV 90.9 (80.0-98.0) fL MCH 30.6 (27.0-33.0) pg MCHC 33.7 (31.0-36.0) g/dl RDW 13.3 (11.0-16.0) % Plt Count 181 (160-400) X10*3/uL MPV 9.8 (9.4-12.4) fL Immature Gran % (Auto) 0.4 (0.0-0.4) % Neut % (Auto) 68.6 (45-73) % Lymph % (Auto) 23.6 (20-40) % Douglas % (Auto) 6.2 (2-11) % Eos % (Auto) 0.6 (0-4) % Baso % (Auto) 0.6 (0-2) % Lymph # (Auto) 1.9 (1.2-4.9) X10*3/uL Douglas # (Auto) 0.5 (0.1-1.2) X10*3/uL Eos # (Auto) 0.1 (0.0-0.4) X10*3/uL Baso # (Auto) 0.1 (0.0-0.2) X10*3/uL Abs Immat Gran (auto) 0.03 (0.00-0.03) X10*3/uL Absolute Neuts (auto) 5.6 (2.0-8.3) x10*3/uL Absolute Nucleated RBC 0.000 (0.0-0.012) X10*3/uL Nucleated RBC % (auto) 0.0 (0.0-0.2) /100WBC Sodium 139 (135-145) mmol/L Potassium 3.9 (3.3-5.1) mmol/L Chloride 106 (96-108) mmol/L Carbon Dioxide 25 (22-29) mmol/L Anion Gap 12 (12-20) BUN 26 H (9-16) mg/dL Creatinine 0.92 (0.5-1.4) mg/dL Estim Creat Clear Calc 85.5 Estimated GFR > 60 Random Glucose 162 H (60-115) mg/dL Calcium 9.2 (8.4-10.2) mg/dL Total Bilirubin 0.7 (0.0-1.0) mg/dL AST 29 (5-37) U/L ALT 25 (0-40) U/L Alkaline Phosphatase 58 (39-117) U/L Total Protein 6.7 (6.5-8.0) g/dL Albumin 4.7 (3.5-5.0) g/dL Urine Color Yellow Urine Appearance Clear Urine pH 6.5 (5.0-9.0) Ur Specific [place] >= 1.030 H (1.005-1.025) Urine Protein Negative (Neg-Trace) mg/dL Urine Glucose (UA) Negative (Negative) mg/dL Urine Ketones 15 (Negative) mg/dL Urine Blood Negative (Negative) Urine Nitrite Negative (Negative) Ur Leukocyte Esterase Negative (Negative) Salicylates < 5.0 L (15-30) mg/dL Urine Opiates Screen Not Detected (Not Detect) Ur Buprenorphine Scrn Not Detected (Not Detect) ng/mL Ur Oxycodone Screen Not Detected (Not Detect) ng/mL Urine Methadone Screen Not Detected (Not Detect) ng/mL Urine Fentanyl Screen Not Detected (Not Detect) Acetaminophen < 3 (<30) mcg/mL Ur Barbiturates Screen Not Detected (Not Detect) Ur Phencyclidine Scrn Not Detected (Not Detect) Ur Amphetamines Screen Not Detected (Not Detect) U Benzodiazepines Scrn Not Detected (Not Detect) Urine Cocaine Screen Not Detected (Not Detect) U Marijuana (THC) Screen POSITIVE H (Not Detect) Ethyl Alcohol < 10 mg/dL External Record Review External record reviewed: Inpatient record Chronic Conditions Patient?s care impacted by: Other (depression, anxiety) Social Determinants Patient?s care significantly limited by Social Determinants of Health including: Other Social Determinant of Health Critical Care Time Critical Care Time Critical Care Time: No Discharge Plan Discharge Clinical Impression: Depression, Suicidal ideation Patient Disposition: Admitted As Inpatient Discharge Date/Time: 09/15/24 14:51
--- NOTE | 2024-09-13 13:19 | PC.NURSE ---
RE: med rec This RN completed med rec with verbal verification from patient. Pt reports all he takes is Lexapro 20mg
[2024-09-13 14:08] LABS: MANUAL DIFF FLAG NO
[2024-09-13 14:14] LABS: Hematocrit 37.1 % (42.0-52.0); Hemoglobin 12.5 g/dl (14.0-18.0); Imm Gran Abs Auto 0.03 X10*3/uL (0.00-0.03); Imm Gran Pct Auto 0.4 % (0.0-0.4); Lymphocytes Absolute Auto 1.9 X10*3/uL (1.2-4.9); Mean Corpuscular HGB Conc 33.7 g/dl (31.0-36.0); Mean Corpuscular Hemoglobin 30.6 pg (27.0-33.0); Mean Corpuscular Volume 90.9 fL (80.0-98.0); NRBC Abs Auto 0.000 X10*3/uL (0.0-0.012); NRBC Pct Auto 0.0 /100WBC (0.0-0.2); Platelet Count 181 X10*3/uL (160-400); Red Blood Count 4.08 X10*6/uL (4.60-5.80); White Blood Count 8.2 X10*3/uL (4.8-10.8)
[2024-09-13 14:34] LABS: Acetaminophen LAB < 3 mcg/mL (<30); Salicylate < 5.0 mg/dL (15-30)
[2024-09-13 15:10] LABS: Alanine Aminotransferase 25 U/L (0-40); Albumin Level 4.7 g/dL (3.5-5.0); Alkaline Phosphatase 58 U/L (39-117); Anion Gap 12 (12-20); Aspartate Amino Transferase 29 U/L (5-37); Blood Urea Nitrogen 26 mg/dL (9-16); Calcium 9.2 mg/dL (8.4-10.2); Carbon Dioxide 25 mmol/L (22-29); Chloride 106 mmol/L (96-108); Creatinine Clr Calc Pharmacy 85.5; Estimated Glomerular Filt Rate > 60; Potassium 3.9 mmol/L (3.3-5.1); Sodium 139 mmol/L (135-145); Total Protein 6.7 g/dL (6.5-8.0)
--- NOTE | 2024-09-13 19:15 | PC.NURSE ---
Took over for Rn Silvia, pt oob asking for a drink, clam and cooperative.
[2024-09-13 19:17] VITALS: BP 108/52; PULSE 68; RESP 18; TEMP 36.7; O2SAT 97
[2024-09-13 19:26] LABS: Appearance Urine Clear; Glucose Urine UA Negative (Negative); PH 6.5 (5.0-9.0); Specific Gravity - Urine >= 1.030 (1.005-1.025)
[2024-09-13 19:35] LABS: Cannabinoid Screen Urine POSITIVE (Not Detect)
--- NOTE | 2024-09-13 21:10 | PC.NURSE ---
pt wanting to hold of on Ativan no.
--- NOTE | 2024-09-13 21:11 | PC.NURSE ---
Pt would like to hold off on Ativan for now.
[2024-09-14 06:25] VITALS: BP 102/50; PULSE 50; RESP 14; TEMP 36.8; O2SAT 100
--- NOTE | 2024-09-14 07:10 | PC.NURSE ---
Assumed care of patient at 0645, patient appears to be sleeping, respirations even and unlabored, no apparent distress is noted. Continue plan of care for CARE team haylie
--- NOTE | 2024-09-14 13:11 | MHC.CARE ---
Pt found IPLOC, section 12A in chart
--- NOTE | 2024-09-14 16:37 | PC.NURSE ---
Pt provided with magazines and [employer] puzzles for activities
[2024-09-14 16:39] VITALS: RESP 18
--- NOTE | 2024-09-14 16:56 | PHA.MEDREC ---
Addendum entered by Melanie Pino RPh 09/14/24 17:06: MED REC REVIEWED BY [facility] Original Note: Pharmacy Consult ? Medication Reconciliation Reviewed med rec done by nursing.
--- NOTE | 2024-09-14 18:47 | PC.NURSE ---
Pt observed to be increasing in agitation, pacing around his room, self-dialoguing. Pt occasionally yelling. When this RN attempted to enter his room, pt stopped this RN and yelled I am fine . Security present to standby. Pt continues to pace and be agitated. Provider aware at this time
--- NOTE | 2024-09-14 21:01 | PC.NURSE ---
Pt appears to be responding to internal stimuli, talking to others in the room occasionally stating Stop, leave him alone . When exiting his room, pt can be visualized continuing to respond, whispering
[2024-09-14 21:08] VITALS: RESP 18
--- NOTE | 2024-09-14 23:18 | PC.NURSE ---
assumed care of pt 2300. PT responding to external stimuli, yelling and hitting himself at times while in his room. PT presenting to the nurses station in a pleasant mood, and respectful. PT requested and provided sandwich and po fluids. Safety checks remain. plan of care ongoing
--- NOTE | 2024-09-15 02:38 | PC.NURSE ---
PT punching himself, yelling/self-dialoguing, ripped pillow. Approached PT and asked for the pillow. While handing it to TW pt stated here you go, shove it up your ass .
--- NOTE | 2024-09-15 03:39 | PC.NURSE ---
Assumed care of pt from Keisha BRICENO at 0300. Pt resting in bed, no apparent distress at this time. Safety checks in place.
[2024-09-15 06:47] VITALS: RESP 16
--- NOTE | 2024-09-15 11:58 | MHC.EDTECH ---
This tech asked patient if I could check his vital signs. Patient responded, absolutely NOT, not with this noise (construction happening at nurses desk), this tech asked if patient would like ear plugs, patient declined. Rn aware of declination of vital signs.
[2024-09-15 15:13] VITALS: BMI 19.0
[2024-09-15 15:18] VITALS: BP 121/54; PULSE 74; RESP 17; TEMP 36.8; O2SAT 100
--- NOTE | 2024-09-15 17:21 | PC.ADMIT ---
Patient is a 29 year old male admitted from the POD on a CV with a dx of Unspecified Depressive Disorder and Autism Spectrum Disorder. Per crisis eval, patient self presented to the ED last night with worsening depression and anxiety, accompanied by SI. Patient reported mood lability and increased agitation over the past few weeks. Upon admission assessment, pt presents with a blunted affect and poor eye contact. Interaction is limited and pt is noted to have an irritable edge regarding certain assessment questions. When asked what brought him into the hospital, pt stated No, I already spoke with the Dr. about that when she met with me, we don't need to talk about it again . He denies SI/HI/AVH, along with anxiety and depression. Reports sleep and appetite are well. Denied any recent life changes and was unable to provide any goals he has for discharge. He declined to sign any MITZY's along with refusing to fill out his safety tool None of these apply to me. I'm just not going to put anything . Tox screen positive for THC only, (though patient declined). Skin check unremarkable and pt placed on 15 minute checks for safety.
--- NOTE | 2024-09-16 04:20 | PC.NURSE ---
retracted 3 day notice 09/15
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
--- NOTE | 2024-09-17 18:01 | HO.PSYCHPN ---
Subjective Subjective Date of Service: 09/17/24 Reason For Visit: SI Subjective Notes: Conditional Voluntary Healthcare Proxy: No Guardianship: No Medical Problems Affecting Mental Status: No Interim History: Medical record and nursing notes reviewed; case discussed during rounds with team/nursing staff, and met with patient for supportive therapy/psychoeducation, as well as medication management. Attempted to talk to patient in his room, he was passive engaging in assessment, very irritable, denies depression or anxiety symptoms, denies psychotic behavior or hallucinations. He does not want to go to any other room to discuss about the plan, do not want to talk about reason he is here as he has be around with other peers in his room. He was medication compliant, he did not sleep last night, stay up all night long, and went to bed at around 05:30 in the morning. Per manager social services, patient also send the manager social services way when she tried to approach her this morning. Per nursing, this is his pattern, sleep in the morning and awake at night from the past admissions here. He does not want any medication change. However, due to the mood irritability, we will increase Seroquel at bedtime for sleep/mood. Increase Seroquel p.r.n. up to 50 mg twice a day. Increase hydroxyzine up to 50 p.r.n.. It is up to patient to decided to take it on not. Medication Compliance: Yes (Refused nicotine patch) Side effects from medications: No Attending Groups: No Review of Systems Acute medical concerns: No Medical Review of Systems: unchanged Review of Systems Review of Systems Yes all other systems are reviewed and are negative Mental Status Exam Mental Status Exam Narrative: Patient is alert and oriented; behavior is irritable, passive cooperative, not easy/pleasant to approach; lying down in bed all day long, attended to no groups patient is not in distress; mood is described as fine and affect incongruent; eye contact poor; Speech is normal rate, volume and prosody and not pressured; psychomotor agitation/retardation present; thought process is not not able to assess, guarded, not goal directed; Thought content is WNL, guarded, pertinent to relevant topics and without any delusional content, paranoid ideation or grandiosity; denies any SI/SIB/HI. Denies AH and there is no evidence of perceptual disturbance. Patient's insight and judgment poor. Diagnostics Vital Signs (24Hr): BMI result Body Mass Index 19.0 Labs 09/13/24 13:57 09/13/24 13:57 Medications Medications Current Medications Acetaminophen (Acetaminophen 325 Mg Tablet) 650 mg PO Q6H PRN PRN Reason: Headache/Pain, Scale 1-10 Al Hydroxide/Mg Hydroxide (Magnesium Hydrox/Alum Hydrox 30 Ml Oral.Susp) 30 ml PO Q6H PRN PRN Reason: Heartburn/Nausea Escitalopram Oxalate (Escitalopram Oxalate 20 Mg Tablet) 20 mg PO DAILY [facility] Last Admin: 09/17/24 08:35 Dose: 20 mg Hydroxyzine HCl (Hydroxyzine Hcl 50 Mg Tablet) 50 mg PO Q6H PRN PRN Reason: mild anxiety Magnesium Hydroxide (Milk Of Magnesia 30 Ml Oral.Susp) 30 ml PO DAILY PRN PRN Reason: Constipation Nicotine (Nicotine 21 Mg Patch.Td24) 21 mg TRANSDERMA DAILY [facility] Last Admin: 09/17/24 09:04 Dose: Not Given Nicotine Polacrilex (Nicotine Polacrilex 2 Mg Gum) 4 mg BUCCAL Q2H PRN PRN Reason: Nicotine Cravings Last Admin: 09/17/24 14:41 Dose: 4 mg Quetiapine Fumarate (Quetiapine Fumarate 50 Mg Tablet) 150 mg PO BEDTIME [facility] Quetiapine Fumarate (Quetiapine Fumarate 50 Mg Tablet) 50 mg PO BID PRN PRN Reason: Anxiety Trazodone HCl (Trazodone Hcl 50 Mg Tablet) 50 mg PO BEDTIME MRX1 PRN PRN Reason: Insomnia Allergies Allergies Allergy/AdvReac Type Severity Reaction Status Date / Time No Known Allergies Allergy Verified 09/13/24 12:51 Assessment & Plan Assessment & Plan (1) MDD (major depressive disorder), recurrent episode: Status: Acute Code(s): F33.9 - Major depressive disorder, recurrent, unspecified (2) PTSD (post-traumatic stress disorder): Status: Acute Code(s): F43.10 - Post-traumatic stress disorder, unspecified (3) Autism spectrum disorder: Status: Acute Code(s): F84.0 - Autistic disorder Plan Patient is a 29-year-old male with history of MDD, PTSD and autism spectrum disorder who self presented to ER due to suicidal ideation secondary to increased depression and anxiety. Plan: CV 15 minute safety checks Continue home medication Start: Seroquel 50mg PO bedtime Seroquel 25mg PO BID PRN Obtain collateral referral to outpatient psychiatric providers encourage groups discharge planning 09/17/24: Isolative, in bed most of the day, irritable, passive engaging in assessment, sending manager social services away when approached this morning. Per nursing, seem he has the same pattern when he was last here a couple of times, slept on morning and then he will be up on a-which could be job related. His denies any safety concerns. Denies anxiety or depression. Mood is good. Do not want to discuss reason brought him here at this current time. Superficial, guarded, attended no groups. He does not agree with the medication change but is aware that provider change some of medications. Increase Seroquel up to 150 at bedtime for mood. Increase p.r.n. Seroquel 50 b.i.d, increase hydroxyzine up to 50 mg p.r.n. for anxiety Patient educated on: medication risk/benefits and therapeutic strategies Informed Consent: further education needed Reason for continued inpatient stay Substantial Risk for: med/psych decompensation Time Spent With Patient Time: Total time managing care of this patient today ____ minutes.
--- NOTE | 2024-09-18 14:32 | P.PNPSI_ITS ---
Subjective Subjective Date of Service: 09/18/24 Reason For Visit: SI Subjective Notes: Conditional Voluntary Interim History: In bed sleeping; pt reports this is his normal schedule d/t work. He reports feeling less anxious and agitated; he feels medications are helping. denies any side effects. denies SI/HI/VH/AH. Plan to discharge home tomorrow; pt aware. Pt reports he plans on following up with outpatient providers. Medication Compliance: Yes Side effects from medications: No Attending Groups: No Mental Status Exam Mental Status Exam Narrative: Pt is alert and oriented; behavior is cooperative and calm; dressed in casual attire; mood is described as good ; eye contact appropriate; Speech is normal rate, volume and not pressured; thought process is organized; Thought content is on discharge; denies SI/HI/VH/AH. Diagnostics Vital Signs (24Hr): BMI result Body Mass Index 19.0 Labs 09/13/24 13:57 09/13/24 13:57 Medications Medications Current Medications Acetaminophen (Acetaminophen 325 Mg Tablet) 650 mg PO Q6H PRN PRN Reason: Headache/Pain, Scale 1-10 Al Hydroxide/Mg Hydroxide (Magnesium Hydrox/Alum Hydrox 30 Ml Oral.Susp) 30 ml PO Q6H PRN PRN Reason: Heartburn/Nausea Escitalopram Oxalate (Escitalopram Oxalate 20 Mg Tablet) 20 mg PO DAILY [facility] Last Admin: 09/18/24 08:35 Dose: 20 mg Hydroxyzine HCl (Hydroxyzine Hcl 50 Mg Tablet) 50 mg PO Q6H PRN PRN Reason: mild anxiety Magnesium Hydroxide (Milk Of Magnesia 30 Ml Oral.Susp) 30 ml PO DAILY PRN PRN Reason: Constipation Nicotine Polacrilex (Nicotine Polacrilex 2 Mg Gum) 4 mg BUCCAL Q2H PRN PRN Reason: Nicotine Cravings Last Admin: 09/18/24 13:20 Dose: 4 mg Quetiapine Fumarate (Quetiapine Fumarate 50 Mg Tablet) 150 mg PO BEDTIME [facility] Last Admin: 09/17/24 21:37 Dose: 150 mg Quetiapine Fumarate (Quetiapine Fumarate 50 Mg Tablet) 50 mg PO BID PRN PRN Reason: Anxiety Trazodone HCl (Trazodone Hcl 50 Mg Tablet) 50 mg PO BEDTIME MRX1 PRN PRN Reason: Insomnia Allergies Allergies Allergy/AdvReac Type Severity Reaction Status Date / Time No Known Allergies Allergy Verified 09/13/24 12:51 Assessment & Plan Assessment & Plan (1) MDD (major depressive disorder), recurrent episode: Status: Acute Code(s): F33.9 - Major depressive disorder, recurrent, unspecified (2) PTSD (post-traumatic stress disorder): Status: Acute Code(s): F43.10 - Post-traumatic stress disorder, unspecified (3) Autism spectrum disorder: Status: Acute Code(s): F84.0 - Autistic disorder Plan Patient is a 29-year-old male with history of MDD, PTSD and autism spectrum disorder who self presented to ER due to suicidal ideation secondary to increased depression and anxiety. Plan: CV 15 minute safety checks Continue home medication Start: Seroquel 50mg PO bedtime Seroquel 25mg PO BID PRN Obtain collateral referral to outpatient psychiatric providers encourage groups discharge planning 09/17/24: Isolative, in bed most of the day, irritable, passive engaging in assessment, sending social media analyst away when approached this morning. Per nursing, seem he has the same pattern when he was last here a couple of times, slept on morning and then he will be up on a-which could be job related. His denies any safety concerns. Denies anxiety or depression. Mood is good. Do not want to discuss reason brought him here at this current time. Superficial, guarded, attended no groups. He does not agree with the medication change but is aware that provider change some of medications. Increase Seroquel up to 150 at bedtime for mood. Increase p.r.n. Seroquel 50 b.i.d, increase hydroxyzine up to 50 mg p.r.n. for anxiety 09/18: In bed sleeping; pt reports this is his normal schedule d/t work. He reports feeling less anxious and agitated; he feels medications are helping. denies any side effects. denies SI/HI/VH/AH. Plan to discharge home tomorrow; pt aware. Pt reports he plans on following up with outpatient providers. Patient educated on: diagnosis and medication risk/benefits Reason for continued inpatient stay Substantial Risk for: stable for discharge Time Spent With Patient Time: Total time managing care of this patient today _20___ minutes.
--- NOTE | 2024-09-19 10:21 | PM.PSYDC ---
DS: Providers Provider Date of Service: 09/19/24 Date of admission: 09/15/24 13:53 Date of discharge: 09/19/24 Primary care physician: Emy Garcia MD Admitting clinician: Jaelyn Figueredo Attending physician on admission: Benjamín Balderas Attending physician on discharge: Benjamín Balderas Discharging clinician: Jaelyn Figueredo DS: Diagnosis Discharge Diagnosis (1) MDD (major depressive disorder), recurrent episode: Status: Acute (2) PTSD (post-traumatic stress disorder): Status: Acute (3) Autism spectrum disorder: Status: Acute DS: Medications Discharge Medications Home Medications: Previous Rx's ?Medication ?Instructions ?Recorded escitalopram oxalate 20 mg tablet 20 mg PO DAILY 30 days #30 tabs 09/18/24 quetiapine 150 mg tablet 150 mg PO BEDTIME 30 days #30 tabs 09/18/24 Mental Status Exam Mental Status Exam Narrative: Pt is alert and oriented; behavior is cooperative and calm; dressed in casual attire; mood is described as good ; eye contact appropriate; Speech is normal rate, volume and not pressured; thought process is organized; Thought content is on discharge; denies SI/HI/VH/AH. Data Data Completed and Pending Completed studies during hospitalization [Text1]: 09/13/24 09/13/24 13:57 19:14 WBC 8.2 RBC 4.08 L Hgb 12.5 L Hct 37.1 L MCV 90.9 MCH 30.6 MCHC 33.7 RDW 13.3 Plt Count 181 MPV 9.8 Immature Gran % (Auto) 0.4 Neut % (Auto) 68.6 Lymph % (Auto) 23.6 [place] % (Auto) 6.2 Eos % (Auto) 0.6 Baso % (Auto) 0.6 Lymph # (Auto) 1.9 [place] # (Auto) 0.5 Eos # (Auto) 0.1 Baso # (Auto) 0.1 Abs Immat Gran (auto) 0.03 Absolute Neuts (auto) 5.6 Absolute Nucleated RBC 0.000 Nucleated RBC % (auto) 0.0 Sodium 139 Potassium 3.9 Chloride 106 Carbon Dioxide 25 Anion Gap 12 BUN 26 H Creatinine 0.92 Estim Creat Clear Calc 85.5 Estimated GFR > 60 Random Glucose 162 H Calcium 9.2 Total Bilirubin 0.7 AST 29 ALT 25 Alkaline Phosphatase 58 Total Protein 6.7 Albumin 4.7 Urine Color Yellow Urine Appearance Clear Urine pH 6.5 Ur Specific [place] >= 1.030 H Urine Protein Negative Urine Glucose (UA) Negative Urine Ketones 15 Urine Blood Negative Urine Nitrite Negative Ur Leukocyte Esterase Negative Salicylates < 5.0 L Urine Opiates Screen Not Detected Ur Buprenorphine Scrn Not Detected Ur Oxycodone Screen Not Detected Urine Methadone Screen Not Detected Urine Fentanyl Screen Not Detected Acetaminophen < 3 Ur Barbiturates Screen Not Detected Ur Phencyclidine Scrn Not Detected Ur Amphetamines Screen Not Detected U Benzodiazepines Scrn Not Detected Urine Cocaine Screen Not Detected U Marijuana (THC) Screen POSITIVE H Ethyl Alcohol < 10 DS: Summary Hospital Course Hospital Course: Patient is a 29-year-old male with history of MDD, PTSD and autism spectrum disorder who self presented to ER due to suicidal ideation secondary to increased depression and anxiety. Per crisis report, patient reports experiencing what he described as a small burst of manic depression . Patient reports mood lability and increased agitation over the past 6 weeks. Patient reports being medication compliant. He reports vague SI but denies plan. Denies HI/VH/AH. History of multiple inpatient psychiatric hospitalizations. History of suicide attempts via hanging in 2022 and via cutting in 2020. Denies history of substance use however, Utox positive for marijuana. Does not have outpatient psychiatric providers at this time; Receives his psychiatric medications from his PCP. During admission assessment, patient presents alert and oriented x3. Cooperative. Irritable edge. Patient reports that he came to the hospital due to increased life stressors. Patient stated, I felt like self-harming. I was not suicidal. I'm not feeling depressed, I'm agitated. My life is stacking up like a Jenga tower. My family is agitating me and so is work. I want to get on medication for anxiety . Patient denies SI/HI/VH/AH. He reports sleep and appetite good. Discussed starting on Seroquel; risks/benefits reviewed; patient agreed to trial. Plan: CV 15 minute safety checks Continue home medication Start: Seroquel 50mg PO bedtime Seroquel 25mg PO BID PRN Obtain collateral referral to outpatient psychiatric providers encourage groups discharge planning Isolative, in bed most of the day, irritable, passive engaging in assessment, sending social work case manager away when approached this morning. Per nursing, seem he has the same pattern when he was last here a couple of times, slept on morning and then he will be up on a-which could be job related. His denies any safety concerns. Denies anxiety or depression. Mood is good. Do not want to discuss reason brought him here at this current time. Superficial, guarded, attended no groups. He does not agree with the medication change but is aware that provider change some of medications. Increase Seroquel up to 150 at bedtime for mood. Increase p.r.n. Seroquel 50 b.i.d, increase hydroxyzine up to 50 mg p.r.n. for anxiety In bed sleeping; pt reports this is his normal schedule d/t work. He reports feeling less anxious and agitated; he feels medications are helping. denies any side effects. denies SI/HI/VH/AH. Plan to discharge home tomorrow; pt aware. Pt reports he plans on following up with outpatient providers. Status at Discharge Cognitive/behavioral status at discharge: Patient has insight and demonstrates good judgment in terms of wanting to pursue treatment. Patient has a safety plan that includes presenting to the closest ER or calling 911 if feeling unsafe. Functional status at discharge: independent ambulation Overall status at discharge: patient is back to baseline Time Spent with Patient Time attestation: Total time managing care of this patient today _20___ minutes. Time spent: Less than 30 minutes Discharge Plan Discharge Anticipated Discharge Date/Time: 09/19/24 11:30 Patient Disposition: Home, Self-Care Discharge Diagnosis: MDD, PTSD, Autism spectrum d/o Referrals: [facility] [Other] - 1 Week Referral Note: You have been referred for outpatient services with [facility]. Please call to follow up. Emy Garcia MD [Primary Care Provider, Internal Medicine] Referral Note: 09-19-24 Please contact your primary care provider to schedule a follow up appt within 7-10 days of discharge. No release on file Discharge Medications: New quetiapine 150 mg tablet 150 mg PO BEDTIME 30 Days Qty: 30 0RF Changed escitalopram oxalate 20 mg tablet 20 mg PO DAILY 30 Days Qty: 30 0RF Discharge Orders: Discharge Order (Routine); Ordered 09/19/24 Ordered By: Jaelyn Figueredo Diet: Regular diet Activity on Discharge: As tolerated Stand Alone Forms: Patient Portal Discharge page, Community Support Print Language: Burmese Care Plan Goals: Maintain mood and safe behaviors Take medications as prescribed Practice coping skills Continue with outpatient providers and reach out to them as needed Health Concerns: Mood stability and behaviors Plan of Treatment: Follow up with your PCP, psychiatric provider and other outpatient providers regarding above concerns Take medications as prescribed Assessment: Patient has insight and demonstrates good judgment in terms of wanting to pursue treatment. Patient has a safety plan that includes presenting to the closest ER or calling 911 if feeling unsafe. Discharge Date/Time: 09/19/24 10:23
== END 2024-09-19 10:23 | disposition home or self-care (01) | DRG 751 ==
LOC: HO.ED 09-14 08:49 → HO.PADLT16 09-15 14:00
PROVIDERS: Physician Assistant Medical; Admitting Provider Registered Nurse; Emergency Provider Emergency Medicine; PCP Internal Medicine; Responsible Provider Registered Nurse; Visit Provider Psychiatry & Neurology Psychiatry
DX: F33.9 Major depressive disorder, recurrent, unspecified (principal); R45.851 Suicidal ideations; F17.210 Nicotine dependence, cigarettes, uncomplicated; F84.0 Autistic disorder; Z71.6 Tobacco abuse counseling; F43.10 Post-traumatic stress disorder, unspecified; Z79.899 Other long term (current) drug therapy
CPT/HCPCS: 36415; 80053; 80143; 80179; 80307; 81003; 85025; 99285; S9485

== ENCOUNTER → 2024-09-15 13:53 | Outpatient (BNV) | payer OTHER, SELFPAY | PROVIDERS: Admitting Provider Registered Nurse; Emergency Provider Emergency Medicine; PCP Internal Medicine; Responsible Provider Registered Nurse; Visit Provider Registered Nurse | DX: F33.2 Major depressive disorder, recurrent severe without psychotic features (principal); F43.11 Post-traumatic stress disorder, acute; F84.0 Autistic disorder | CPT/HCPCS: 99233 ==